=== PATIENT | male | born 1960 | race African-American/Black ===

== ENCOUNTER 2022-12-23 01:12 | Inpatient (IN) | payer SELFPAY ==
[2022-12-23] VITALS (24 sets, daily range): BP systolic 102–184; BP diastolic 67–111; PULSE 56–86; RESP 14–22; TEMP 36.7–36.8; O2SAT 94–100; BMI 28.3
--- NOTE | 2022-12-23 | ECHO_ITS ---
Patient Info Name: David Harp Age: 62 years : 1960 Gender: Male Ht: 75 in Wt: 230 lbs BSA: 2.37 m2 HR: 78 bpm BP: 165 / 85 mmHg Heart Rhythm: Sinus Rhythm Technical Quality: Good Exam Date: 12/23/2022 8:07 AM Exam Location: [facility] Pulmonary Exam Room: ICU1 Patient Status: Inpatient Admit Date: 12/23/2022 Staff Ordering Physician: Shen Sheikh MD Dip Stand Loader: Teetee Walter RDCS Attending Provider: Shen Sheikh MD Referring Physician: Aguilar CAGLE; Exam Type: CA echo doppler color flow Study Info Indications - chest pain s/ cath lvh stemi Complete two-dimensional, color flow and Doppler transthoracic echocardiogram is performed. Summary 1. Complete two-dimensional, color flow and Doppler transthoracic echocardiogram is performed. 2. Concentric left ventricular hypertrophy with normal systolic function and grade 1 diastolic noncompliance. 3. Mildly sclerotic aortic valve without stenosis. 4. Trivial MR. Left Ventricle Left ventricular chamber dimension is normal. Left ventricular systolic function is normal, estimated at 60-65%. There is moderate concentric increased left ventricular wall thickness. The left ventricular diastolic function is grade I diastolic dysfunction. Right Ventricle Right ventricular chamber dimension is normal. Left Atria Left atrial chamber dimension is mildly enlarged. Right Atria Right atrial chamber dimension is normal. Aortic Valve The aortic valve is trileaflet. There is mild aortic valve sclerosis. Pulmonic Valve The pulmonic valve is not well visualized. Mitral Valve The mitral valve has normal leaflets. There is trace mitral valve regurgitation. Tricuspid Valve The tricuspid valve leaflets are normal. Pericardium/Pleural The pericardium appears normal. Aorta The aortic root size at the sinus of Valsalva is normal. Left Ventricular Outflow Tract Name Value Normal LVOT 2D LVOT Diameter 2.1 cm LVOT Doppler LVOT Peak Gradient 5 mmHg LVOT Mean Gradient 2 mmHg LVOT VTI 20 cm LVOT VTI/AV VTI Ratio 1.0 LVOT Stroke Volume 68 ml LVOT CO 14.5 l/min LVOT CI 6.1 l/min/m2 Pulmonic Valve Name Value Normal PV Doppler PV Peak Gradient 3 mmHg Mitral Valve Name Value Normal MV Doppler MV Decel [place] 335 cm/s2 MV PHT 49
--- NOTE | ~2022-12-23 | CT_ITS ---
EXAMINATION: CTA chest abdomen pelvis DATE: 12/23/2022 10:00 INDICATION: Chest pain radiating to the back TECHNIQUE: Computed tomographic angiography (CTA) of the chest, abdomen, and pelvis was performed wit hout and with 100 mL Omnipque-350 intravenous contrast. Maximum intensity projection 3D-reconstructio ns of the aorta and other arteries were constructed by the technologist on a separate workstation. Th e dose-length product (DLP) was 1963.93 mGy-cm. Automated exposure control and iterative reconstructi on technique were employed. COMPARISON: None. FINDINGS: CHEST CTA: There is an acute dissection of the aorta beginning at the proximal descending aorta and continuing i nto the abdominal aorta just below the level of the renal arteries. There are patchy airspace opaciti es of the lower lobes. No pleural effusion or pneumothorax. No pathologically enlarged thoracic lymph nodes are identified. The heart size is normal. Surgical changes are noted in the lower cervical spi ne. ABDOMEN AND PELVIS CTA: The aortic dissection continues from the distal descending aorta into the abdomen to just below the l evel of the renal arteries. The celiac axis, superior mesenteric artery and left renal artery arise f rom the true lumen. The right renal artery arises from the false lumen. The liver, spleen, pancreas, and adrenal glands are normal. The gallbladder is surgically absent. Cysts of the kidneys measure up to 10 mm on the right. No pathologically enlarged abdominal or pelvic lymph nodes are identified. No free intraperitoneal gas or evidence of bowel obstruction. There is an umbilical hernia containing fa t. There is moderate lumbar spondylosis. The urinary bladder is opacified with contrast, likely relat ed to earlier cardiac catheterization. IMPRESSION: 1. Aortic dissection beginning at the proximal descending aorta and continuing to the abdominal aorta just below the level between arteries. The celiac axis, superior mesenteric artery, and left renal a rtery arise from the true lumen. The right renal artery arises from the false lumen. These findings w ere discussed with Dr. Polly Cuevas MD at 1027 hours on 12/23/2022. 2. Patchy dependent airspace opacities of the lungs, consistent with atelectasis versus pneumonia. Reviewed, dictated and finalized at location A. IMPRESSION: 1. Aortic dissection beginning at the proximal descending aorta and continuing to the abdominal aorta just below the level between arteries. The celiac axis, superior mesenteric artery, and left renal artery arise from the true lumen. Th e right renal artery arises from the false lumen. These findings were discussed with Dr. Polly Cuevas MD at 1027 hours on 12/23/2022. 2. Patchy dependent airspace opacities of the lungs, consistent with atelectasi s versus pneumonia.
--- NOTE | ~2022-12-23 | XR_ITS ---
EXAMINATION: XR chest 1V portable INDICATION: Chest pain TECHNIQUE: Portable AP chest at 0151 hours COMPARISON: None available FINDINGS: There are patchy interstitial and airspace opacities throughout the lungs. No pleural effus ion or pneumothorax. The cardiomediastinal silhouette is normal. Partially imaged changes of fusion p rocedure are noted at the cervicothoracic junction. IMPRESSION: 1. Mild diffuse lung disease which could reflect pulmonary edema versus pneumonia versus atelectasis. Reviewed, dictated and finalized at location A. IMPRESSION: 1. Mild diffuse lung disease which could reflect pulmonary edema versus pneumon ia versus atelectasis.
--- NOTE | 2022-12-23 01:19 | ECG_ITS ---
Measurements Intervals [place] Rate: 55 P: 68 IN: 136 QRS: 2 QRSD: 136 T: -66 QT: 454 QTc: 435 Interpretive Statements SINUS BRADYCARDIA WITH SINUS ARRHYTHMIA POSSIBLE LEFT ATRIAL ENLARGEMENT RSR' IN V1 OR V2, CONSIDER RIGHT VENTRICULAR HYPERTROPHY OR RIGHT VCD DELAYED PRECORDIAL R/S TRANSITION LEFT VENTRICULAR HYPERTROPHY AND ST-T CHANGE LATERAL INFARCT, AGE INDETERMINATE HIGH LATERAL INFARCT, AGE INDETERMINATE ST-T WAVE ABNORMALITY IN INFERIOR LEADS- CONSIDER ISCHEMIA ABNORMAL ECG NO PREVIOUS ECG AVAILABLE FOR COMPARISON Electronically Signed On 12-23-2022 8:22:25 CDT by Adithya Van D.O.
--- NOTE | 2022-12-23 01:26 | ECG_ITS ---
Measurements Intervals [place] Rate: 57 P: 148 NC: 136 QRS: -15 QRSD: 138 T: -32 QT: 454 QTc: 443 Interpretive Statements ECTOPIC ATRIAL BRADYCARDIA LEFT ATRIAL ENLARGEMENT RSR' IN V1 OR V2, CONSIDER RIGHT VENTRICULAR HYPERTROPHY OR RIGHT VCD LEFT VENTRICULAR HYPERTROPHY AND ST-T CHANGE LATERAL INFARCT, AGE INDETERMINATE HIGH LATERAL INFARCT, AGE INDETERMINATE ST-T WAVE ABNORMALITY IN INFERIOR LEADS- CONSIDER ISCHEMIA ABNORMAL ECG COMPARED TO ECG 12/23/2022 01:21:12 NO SIGNIFICANT CHANGES Electronically Signed On 12-23-2022 8:23:30 CDT by Adithya Van D.O.
[2022-12-23] MEDS: ASPIRIN 81 MG CHEWABLE TABLET 324 MG PO (01:31)
--- NOTE | 2022-12-23 01:32 | ED_ITS ---
HPI - General Adult General Chief complaint: Chest Pain Stated complaint: epigastric pain History of Present Illness HPI narrative: Patient 62-year-old gentleman who presents the emergency department with chief complaint of chest pain. Patient reports that around midnight he started having discomfort in his chest reports that he got diaphoretic and short of breath. Patient reports that the pain is not radiating but does report that he feels weak in his lower extremities. The patient states that the pressure is a heaviness and fullness sensation in his chest reports that its not improved by anything. Review of Systems Review of Systems: A 10 system review of systems was completed on the patient and is negative except for what is stated in the HPI. Nursing and ancillary documentation was reviewed. Exam Narrative: GENERAL: Ill-appearing, diaphoretic, appears in acute pain. HEAD: Normocephalic, atraumatic. EYES: PERRLA and EOMI. ENT: Nares clear, no rhinorrhea or epistaxis. Mucous membranes moist. NECK: Supple. CHEST: Clear to auscultation. No respiratory distress. HEART: Regular rate and rhythm. No murmur heard. Normal peripheral pulses. ABDOMEN: Soft, nontender, nondistended, normal active bowel sounds. EXTREMITIES: Normal range of motion. No edema. SKIN: Warm, dry, no rash. NEURO: No focal deficits. Alert and oriented x3. PSYCH: Normal mood and affect. Course Vital Signs Vital signs: Vital Signs Pulse Rate 65 12/23/22 01:19 Respiratory Rate 22 H 12/23/22 01:19 Blood Pressure 166/108 H 12/23/22 01:19 Pulse Oximetry 94 12/23/22 01:19 Oxygen Delivery Room Air 12/23/22 01:19 Pulse Rate 56 L 12/23/22 01:28 Respiratory Rate 22 H 12/23/22 01:19 Blood Pressure 166/108 H 12/23/22 01:19 Pulse Oximetry 94 12/23/22 01:19 Oxygen Delivery Room Air 12/23/22 01:19 Medical Decision Making [facility] Narrative Medical decision making narrative: Differential diagnosis includes ST elevation NH, non-STEMI, ACS, Initial EKG showed lateral ST elevations with reciprocal ST depressions Due to the findings of the EKG and the patient's clinical presentation the patient was activated as an acute ST elevation NH the case was discussed with Dr. Sheikh of interventional cardiology the patient was started on heparin given aspirin given Brilinta was given Lopressor morphine and a nitroglycerin drip was ordered as well. Vital Signs Vital Signs: Vital Signs Pulse Rate 65 12/23/22 01:19 Respiratory Rate 22 H 12/23/22 01:19 Blood Pressure 166/108 H 12/23/22 01:19 Pulse Oximetry 94 12/23/22 01:19 Oxygen Delivery Room Air 12/23/22 01:19 Pulse Rate 56 L 12/23/22 01:28 Respiratory Rate 22 H 12/23/22 01:19 Blood Pressure 166/108 H 12/23/22 01:19 Pulse Oximetry 94 12/23/22 01:19 Oxygen Delivery Room Air 12/23/22 01:19 Critical Care Time Critical Care Time Critical Care Time: Yes Total Critical Care Time: 30 Discharge Plan Discharge Clinical Impression: ST elevation NH (STEMI) Patient Disposition: Still a Patient Condition: Stable Time of Disposition: 01:37
[2022-12-23] MEDS: MORPHINE SULFATE (*CRX) 4 MG/ML INJ IV PUSH ×2 (01:35→02:02)
[2022-12-23] MEDS: TICAGRELOR 90 MG TABLET 180 MG PO (01:39)
[2022-12-23] MEDS: HEPARIN SODIUM 5,000 UNITS/ML VIAL 4000 UNITS IV PUSH (01:39)
[2022-12-23 01:43] LABS: Basophils Absolute Auto 0.1 K/mm3 (0.0-0.1); Basophils Percent Auto 0.5 % (0.2-1.2); Eosinophils Absolute Auto 0.2 K/mm3 (0-0.3); Eosinophils Percent Auto 1.6 % (0-4.4); Hematocrit 42.3 % (42.0-52.0); Immature Granulocyte Absolute 0.06 K/mm3 (0.00-0.031); Immature Granulocyte Percent A 0.5 % (0-0.5); Lymphocytes Absolute Auto 2.08 K/mm3 (0.9-3.2); Lymphocytes Percent Auto 16.2 % (18.3-44.2); Mean Corpuscular HGB Conc 33.1 g/dl (32-36); Mean Corpuscular Hemoglobin 26.5 pg (26-34); Mean Corpuscular Volume 80.1 fl (80-100); Mean Platelet Volume 10.8 fl (7.4-10.4); Monocytes Absolute Auto 0.8 K/mm3 (0.1-0.6); Monocytes Percent Auto 6.2 % (2.6-8.5); Neutrophils Absolute Auto 9.6 K/mm3 (1.3-6.7); Platelet Count Result 156 k/mm3 (150-375); Red Blood Count 5.28 M/mm3 (4.6-6.20); Red Cell Distribution Width 16.1 % (11.5-14.5); White Blood Count 12.8 K/mm3 (4.5-10.0)
[2022-12-23 01:53] LABS: Alanine Aminotransferase 25 U/L (6-50); Albumin Level 4.4 g/dL (3.5-5.1); Alkaline Phosphatase 119 U/L (38-126); Anion Gap 6 mmol/L (8-16); Aspartate Amino Transferase 30 U/L (17-59); Bilirubin,Total 0.6 mg/dL (0.2-1.3); Blood Urea Nitrogen 17 mg/dL (9-20); Carbon Dioxide 27 mmol/L (22-30); Chloride 108 mmol/L (98-107); Estimated CRCL calculation 72 ml/min; Estimated Glomerular Filt Rate > 60; Glucose 117 mg/dL (65-110); Lipase 40 U/L (23-300); Potassium 3.6 mmol/L (3.4-5.0); Sodium 141 mmol/L (137-145)
[2022-12-23 01:58] LABS: Prothrombin Time 13.2 Seconds (11.1-14.7)
[2022-12-23 02:03] LABS: NT Pro B Type Natriuretic Pept 113 pg/mL (19.9-100)
[2022-12-23 02:45] LABS: Troponin I < 0.012 ng/mL (0.000-0.034)
--- NOTE | 2022-12-23 03:02 | PM.IMHP ---
H&P: HPI History of Present Illness Date/Time: 12/23/22 03:02 Chief Complaint: chest pain Narrative: this is a 62-year-old man who is unknown to me prior to this emergency. He came to the emergency room in the middle of the night because of chest pain that started a short time ago at home. STEMI was declared by the ED staff and the STEMI team has been activated the patient is now being prepared for emergency angiography in the cardiac catheterization lab. Apparently he was given some morphine in the emergency room and as a result he is somewhat sedated and not providing any direct history at this time. Was told that he had no prior history of coronary artery disease. He was not apparently taking any home medications prior to the procedure. There are no previous records here at [facility]. Review of Systems Review of Systems: ROS unobtainable: Yes unobtainable due to mental status Meds Home Medications and Allergies Allergies Allergy/AdvReac Type Severity Reaction Status Date / Time No Known Allergies Allergy Verified 12/23/22 01:52 Vital Signs Vital Signs - 24 hr 12/23/22 01:19 12/23/22 01:28 12/23/22 01:41 Pulse Rate 65 56 L Respiratory Rate 22 H Blood Pressure 166/108 H Pulse Oximetry 94 96 Oxygen Delivery Room Air Nasal Cannula Oxygen Flow Rate 2 12/23/22 01:35 12/23/22 01:54 Pulse Rate 59 L 66 Respiratory Rate 16 16 Blood Pressure 172/95 H 154/97 H Pulse Oximetry 100 95 Oxygen Delivery Oxygen Flow Rate Exam Const: Other: Tall well-developed well-nourished black male who is moaning but otherwise not providing any direct history at this time HENMT: Mouth: Yes moist mucous membranes Eyes: Sclera: sclerae normal Neck: Neck: supple and no JVD Other: carotid pulses are unremarkable bilaterally Resp: Effort & Inspection: normal respiratory effort Auscultation: clear to auscultation bilaterally Cardio: Rate: regular rate Rhythm: regular rhythm Other: the PMI is nondisplaced there is no murmur 4th heart sound is audible GI: GI Palp: Yes Soft to palpation Auscultation: normal bowel sounds Skin: General skin exam: normal color Neuro: Other: patient is arousable but apparently sedated from IV morphine Extrem: General: normal to inspection Other: normal pulses, no edema H&P: Results Labs Labs: Short CBC 12/23/22 Range/Units 01:38 WBC 12.8 H (4.5-10.0) K/mm3 Hgb 14.0 (14.0-18.0) g/dL Hct 42.3 (42.0-52.0) % Plt Count 156 (150-375) k/mm3 BMP 12/23/22 01:38 Sodium 141 Potassium 3.6 Chloride 108 H Carbon Dioxide 27 BUN 17 Creatinine 1.20 Glucose 117 H Calcium 9.0 Cardiac Enzymes 12/23/22 Range/Units 01:38 Troponin I < 0.012 (0.000-0.034) ng/mL Liver Function 12/23/22 Range/Units 01:38 Total Bilirubin 0.6 (0.2-1.3) mg/dL AST 30 (17-59) U/L ALT 25 (6-50) U/L Alkaline Phosphatase 119 (38-126) U/L Albumin 4.4 (3.5-5.1) g/dL Assessment and Plan Assessment and plan (1) ST elevation [place] (STEMI): Code(s): I21.3 - ST elevation (STEMI) myocardial infarction of unspecified site Status: Acute Plan 62-year-old man who presents to the hospital with acute chest pain STEMI was activated by the ED staff. He is be prepared for emergency angiography and revascularization if indicated by the findings. Shen Sheikh MD [facility]
--- NOTE | 2022-12-23 03:05 | WPDCARDPROC ---
Cardiac Cath Procedure Note Date of procedure:: 12/23/22 Performing physician:: Shen Sheikh MD Indication:: chest pain/ STEMI activate Brief clinical history:: this is a 62-year-old black male unknown to me prior to this emergency. The patient presented to the emergency room a short time ago with chest pain it is middle of the night that awakened him from sleep. His ECG was interpreted as consistent with acute anterior OH. there is evidence of sinus rhythm with impressive voltage evidence of LVH but there is no obvious acute current of injury. patient was given aspirin Brilinta and heparin in the emergency department. Procedure Procedure performed:: Emergency coronary angiography left ventriculography aortic root injection Sedation/Medication given:: no additional sedation given in the cardiac catheterization case start time 2:26 a.m. case end time 2:49 a.m. Access site:: right femoral artery Estimated blood loss:: 25 cc Procedure note:: Patient was brought to the cardiac catheterization lab where the right femoral was prepared and draped in the normal fashion. Anesthesia was provided with 1% lidocaine infiltrated locally. Using the modified Seldinger technique the femoral artery was punctured and a 6 Bruneian vascular sheath was placed. After this I used a 5 [place] JR4 catheter to engage right coronary artery. A successful in finding the right coronary ostium with this catheter. I then used a 6 [place]une[place] CLS 3.5 catheter to engage the left coronary artery for angiography in multiple projections. Following this a WRP catheter was used to look for the right coronary ostium. Lastly I used a 5 [place] angled pigtail catheter to document left-sided hemodynamics and to inject left ventriculogram in the PEREZ projection. The same catheter was used to inject a aortic root injection in the 45 degree PAT projection. This any reviewed and the case was terminated. The sheath was sutured into position and the patient was taken to the ICU for post cath recovery and further treatment and evaluation. Findings:: Hemodynamics: Central aortic pressure is 194 over 100 left ventricle 194 over 10 end-diastolic 30. No gradient across the aortic valve. Left ventricle: Left ventricle is normal in dimension there appears to be concentric LVH with vigorous contractility segments the ejection fraction I would visually estimated to be 65-70%. There were no regional wall motion abnormalities. The left main coronary artery is widely patent the left anterior descending is a moderate caliber artery extending down to around the apex. The LAD has a large diagonal branch taking off proximally which continues down nearly to the apex as well. The LAD in the major diagonal as well as the septal branches are free of disease. Circumflex is large in caliber and dominant to the posterior circulation. The circumflex trunk, the marginal branches and the posterior branches are angiographically normal. The right coronary artery is very small in non dominant and seen on the aortic root injection. As it is very small and non dominant further attempts to engage it selectively for angiography were not performed aortic root injection is unremarkable. There is no enlargement or evidence of dissection flap. Conclusion:: 1. Left coronary dominant circulation with no angiographic evidence of coronary artery disease 2. left ventricular hypertrophy with vigorous systolic function 3. severe systemic hypertension Shen Santiago MD [facility]
--- NOTE | 2022-12-23 03:25 | ECG_ITS ---
Measurements Intervals [place] Rate: 77 P: 70 MO: 148 QRS: -3 QRSD: 138 T: -81 QT: 425 QTc: 482 Interpretive Statements SINUS RHYTHM WITH MARKED SINUS ARRHYTHMIA WITH ATRIAL COUPLET POSSIBLE LEFT ATRIAL ENLARGEMENT RSR' IN V1 OR V2, CONSIDER RIGHT VENTRICULAR HYPERTROPHY OR RIGHT VCD LEFT VENTRICULAR HYPERTROPHY AND ST-T CHANGE LATERAL INFARCT, AGE INDETERMINATE HIGH LATERAL INFARCT, AGE INDETERMINATE BORDERLINE ST-T WAVE ABNORMALITY- INFERIOR LEADS ABNORMAL ECG COMPARED TO ECG 12/23/2022 01:27:05 [address]INUS [address]M NOW PRESENT [address]-T WAVE ABNORMALITY IMPROVED Electronically Signed On 12-23-2022 8:28:32 CDT by Adithya Van D.O.
[2022-12-23] MEDS: LABETALOL HCL INJ 100 MG/20 ML VIAL 20 MG IV PUSH ×2 (03:33→10:12)
--- NOTE | 2022-12-23 04:59 | ADMGEN ---
This patient, David Harp, was admitted to Intensive Care Unit-1 at 320. Patient/family oriented to hospital policies and general routines including ID bracelet, bed and alarms, visiting hours, pain management, procedures, bathroom and other care routines, personal items, smoking policy, room service/diet, and visiting hours. Information on how to activate the Rapid Response Team has been discussed. Patient/Family are encouraged to report perceived risks to care and to ask questions if they do not understand what they are told or what they should do.
[2022-12-23 07:40] LABS: Alanine Aminotransferase 37 U/L (6-50); Alkaline Phosphatase 124 U/L (38-126); Anion Gap 5 mmol/L (8-16); Aspartate Amino Transferase 48 U/L (17-59); Bilirubin,Total 0.9 mg/dL (0.2-1.3); Blood Urea Nitrogen 14 mg/dL (9-20); Calcium 8.8 mg/dL (8.4-10.2); Carbon Dioxide 25 mmol/L (22-30); Chloride 109 mmol/L (98-107); Estimated CRCL calculation 94 ml/min; Estimated Glomerular Filt Rate > 60; Glucose 121 mg/dL (65-110); Potassium 3.9 mmol/L (3.4-5.0); Sodium 139 mmol/L (137-145)
[2022-12-23 08:02] LABS: INR 1.2; Partial Thromboplastin Time 28.1 SECONDS (22.3-36.8); Prothrombin Time 14.6 Seconds (11.1-14.7)
[2022-12-23 08:10] LABS: Basophils Percent Auto 0.4 % (0.2-1.2); Eosinophils Percent Auto 0.3 % (0-4.4); Hematocrit 39.5 % (42.0-52.0); Hemoglobin 13.3 g/dL (14.0-18.0); Immature Granulocyte Absolute 0.03 K/mm3 (0.00-0.031); Immature Granulocyte Percent A 0.3 % (0-0.5); Lymphocytes Absolute Auto 1.09 K/mm3 (0.9-3.2); Lymphocytes Percent Auto 10.1 % (18.3-44.2); Mean Corpuscular HGB Conc 33.7 g/dl (32-36); Mean Corpuscular Hemoglobin 26.4 pg (26-34); Mean Corpuscular Volume 78.5 fl (80-100); Mean Platelet Volume 11.1 fl (7.4-10.4); Monocytes Absolute Auto 0.8 K/mm3 (0.1-0.6); Monocytes Percent Auto 7.7 % (2.6-8.5); Neutrophils Absolute Auto 8.7 K/mm3 (1.3-6.7); Neutrophils Percent Auto 81.2 % (45.5-73.1); Platelet Count Result 157 k/mm3 (150-375); Red Blood Count 5.03 M/mm3 (4.6-6.20); Red Cell Distribution Width 15.5 % (11.5-14.5); White Blood Count 10.8 K/mm3 (4.5-10.0)
[2022-12-23] MEDS: LOSARTAN POTASSIUM 100 MG TABLET PO (08:48)
[2022-12-23] MEDS: METOPROLOL SUCCINATE EXT REL 50 MG TABCR PO (08:48)
[2022-12-23] MEDS: CHLORTHALIDONE 25 MG TABLET PO (08:51)
--- NOTE | 2022-12-23 09:15 | WPDCNINT ---
Assessment and Plan Assessment and plan (1) ST elevation [place] (STEMI): Code(s): I21.3 - ST elevation (STEMI) myocardial infarction of unspecified site Status: Acute Assessment and Plan: Patient presented with chest pain, diaphoresis, shortness of breath, radiation to the back. Patient was taken to the cardiac slabber and underwent an angiogram which showed no evidence of coronary artery disease, there is no enlargement or evidence of dissection flap, aortic root injection is unremarkable, EF of 65-70% with concentric LVH -patient has been started on statin, chlorthalidone, lisinopril, metoprolol -cardiology following the patient (2) Chest pain: Code(s): R07.9 - Chest pain, unspecified Status: Acute Assessment and Plan: -patient continues to have chest pain this morning that is radiating to the back, will obtain CT scan of the chest to rule out dissection -given that patient has severe systemic hypertension -will also give him normal saline at 100 mL/hour x1 bag (1000 mL) post CT scan for renal protection since he also had an angiogram earlier today (3) Essential hypertension: Code(s): I10 - Essential (primary) hypertension Status: Acute Assessment and Plan: Patient on medications as above per Cardiology -hydralazine p.r.n. has been ordered for systolics greater than 160 mmHg Plan DVT prophylaxis: Patient received Brilinta and heparin anemia this morning Stress ulcer prophylaxis: Not indicated Nutrition: Heart healthy diet Code Status: Full code Critical Care Time Spent: 48 minutes Due to a high probability of clinically significant, life threatening deterioration, the patient required my highest level of preparedness to intervene emergently and I personally spent this critical care time directly and personally managing the patient. This critical care time included obtaining a history; examining the patient; pulse oximetry; ordering and review of studies; arranging urgent treatment with development of a management plan; evaluation of patient's response to treatment; frequent reassessment; and discussions with other providers. It was exclusive of separately billable procedures and treating other patients and teaching time. Please see Assessment and Plan section and the rest of the note for further information on patient assessment and treatment This dictation may have been done utilizing a voice recognition system. Attempts have been made to correct errors. However, there may be uncorrected grammatical, spelling, and recognitions errors present. [employer] Consult Note Consult date: 12/23/22 Reason for consult: Chest pain, shortness a breath, diaphoresis, STEMI decline in the ER HPI: David Harp is a 62 year old male past medical history of essential hypertension presented the ED on 12/23/2022 in the early hours complains of chest pain that woke him up in a night. Patient also complained of shortness of, pressure-like chest pain with sensation of fullness and heaviness in the chest , into the back along with weakness in lower extremities. ECG in the ER was read as acute anterior [place], according the dog bather the EKG showed sinus rhythm with impressive voltage evidence of LVH with there is no obvious acute current of injury. Patient was taken to the slabber with no evidence of coronary artery disease, LVH with vigorous systolic function 65-70%, severe systemic hypertension. Patient was sent to the ICU for further management. Patient was started on statin, chlorthalidone, losartan, metoprolol. Patient seen examined this morning in the ICU, continues to complain of chest pain that is radiating to the back, denies any shortness of breath or diaphoresis. Also complains of leg pain. Patient is hypertensive, good O2 sats on room air, urine output has been adequate, afebrile. Denies any nausea, vomiting and abdominal pain at this time Review of Systems Review of Systems: Al
[2022-12-23] MEDS: MORPHINE SULFATE (*CRX) 2 MG/ML INJ IV PUSH (10:20)
[2022-12-23] MEDS: SODIUM CHLORIDE 0.9% IV 1,000 ML 100 ML IV CONT (10:23)
[2022-12-23] MEDS: ESMOLOL HCL 2,500 MG/250 ML 2,500 MG/250 ML BAG 32.58 MG IV CONT (10:40)
[2022-12-23] MEDS: hydrALAZINE HCL 20 MG/ML VIAL IV PUSH (11:18)
[2022-12-23] MEDS: HYDROmorphone HCL INJ (*CRX) 1 MG/ML SYR IV PUSH (11:27)
[2022-12-23 11:34] LABS: Lactic Acid Reflex 2.1 mmol/L (0.7-2.0)
[2022-12-23] MEDS: SODIUM NITROPRUSSIDE IV SOLN 50 MG in DEXTROSE 5% IN WATER 250 ML 9.77 MG IV CONT (11:48)
--- NOTE | 2022-12-23 12:14 | PC.NURSE ---
Transferred patient to [place], via Air evac. Patient on room air, A&O x 4. Report given to Chantale. last set of vitals HR 81 02 96 on room air, BP 102/67 RR 16. Belongings sent with patient full set of dentures and cell phone. 12:12
[2022-12-23 14:21] LABS: Reflex Lactic Acid Yes or No Add Lactic
[2022-12-25 07:15] LABS: Activated Clotting Time 113 SEC (74-137)
--- NOTE | 2022-12-27 07:24 | P.TS_ITS ---
Transfer Discharge Sum: Prov Provider Date of admission: 12/23/22 01:31 Primary care physician: Kelechi Campos MD Admitting clinician: Shen Sheikh MD Attending physician on admission: Shen Sheikh Attending physician on discharge: Shen Sheikh Discharging clinician: Shen Sheikh Anticipated date of transfer: 12/24/22 Receiving physician/facility: [facility] DS: Admitting Diagnosis Discharge Date 12/23/[address]-elevation MO DS: Discharge Diagnosis Discharge Diagnosis Plan Type 2 aortic dissection Transfer Discharge Sum: Med Medications Active and Home Medications: Home Medications ibuprofen 200 mg tablet 3,200 mg PO DAILY 12/23/22 [History Confirmed 12/23/22] Transfer Discharge Sum: Hosp Hospital Course Hospital course: David Harp is a 62 year old male who presented to the hospital in the middle of the night with chest pain. Evaluation in the ER lead to the impression of anterior ST-elevation MO based on ECG appearance. STEMI team was activated and the patient was brought for emergency cardiac catheterization. The patient underwent the procedure uneventfully and was found to have left coronary dominant circulation with no evidence of coronary artery disease. Left ventricular systolic function was also normal. Following recovery from the angiogram in the ICU the patient's chest pain was reported to be worsening in the thoracic area in the interscapular region of the back. For this reason a CT of the thoracic aorta was done which documented evidence of a type 2 aortic dissection. The patient was otherwise hemodynamically stable. He was transferred by ambulance to [facility] for ongoing care and management of this as acute aortic dissection is requiring higher level of vascular care that is available at [facility]. Time Spent with Patient Time attestation: Total time spent providing and/or coordinating transfer services: Total time spent: Greater than 30 minutes Exam Narrative: Well-developed well-nourished black male in moderate distress because of chest and back pain Const: General: acute distress HENMT: Head: atraumatic Eyes: Sclera: sclerae normal Pupils: Equal, round and reactive pupils present Neck: Neck: supple and no JVD Thyroid: thyroid normal Chest: Chest palpation & inspection: normal inspection of the chest Resp: Auscultation: clear to auscultation bilaterally Cardio: Palpation: normal PMI Rate: regular rate Rhythm: regular rhythm Heart sounds: S1 normal heart sound present and S2 normal heart sound present GI: Inspection: normal to inspection GI Palp: Yes Soft to palpation Skin: General skin exam: normal color Neuro: General: oriented to person and oriented to place Extrem: Other: Distal perfuse normal/intact no edema
== END 2022-12-23 12:12 | disposition short-term general hospital (02) | DRG 192 ==
LOC: ANHED 01:40 → ANHICU 01:44
PROVIDERS: Internal Medicine; Admitting Provider Specialist; Emergency Provider Emergency Medicine; PCP Family Medicine; Visit Provider Specialist
PROC: 4A023N7 Measurement of Cardiac Sampling and Pressure, Left Heart, Percutaneous Approach (ICD-10-PCS; CPT 93452; principal; 2022-12-23 02:00)
DX: I71.03 Dissection of thoracoabdominal aorta (principal); F17.210 Nicotine dependence, cigarettes, uncomplicated; I10 Essential (primary) hypertension
CPT/HCPCS: 36415; 71045; 71275; 74174; 80053; 83605; 83690; 83880; 84484; 85025; 85610; 85730; 86850; 86900; 86901; 93005; 93306; 93458; 96374; 96375; 99285; A9270; C1887; C1894; J0360; J1170; J1644; J2270; J7040; J7050; J7060; Q9967

== ENCOUNTER 2023-03-30 08:29 | Outpatient (CLI) | payer BC, SELFPAY ==
[2023-03-30 09:55] LABS: Anion Gap 10 mmol/L (8-16); Blood Urea Nitrogen 13 mg/dL (9-20); Carbon Dioxide 27 mmol/L (22-30); Chloride 104 mmol/L (98-107); Estimated Glomerular Filt Rate > 60; Glucose 113 mg/dL (65-110); Potassium 3.2 mmol/L (3.4-5.0); Sodium 141 mmol/L (137-145)
== END 2023-03-30 08:30 | disposition home or self-care (01) ==
PROVIDERS: PCP Family Medicine; Visit Provider Internal Medicine Cardiovascular Disease
DX: Z79.899 Other long term (current) drug therapy (principal)
CPT/HCPCS: 36415; 80048

== ENCOUNTER 2023-04-04 07:53 | Outpatient (CLI) | payer BC, SELFPAY ==
[2023-04-04 08:59] LABS: Anion Gap 8 mmol/L (8-16); Blood Urea Nitrogen 14 mg/dL (9-20); Calcium 8.8 mg/dL (8.4-10.2); Carbon Dioxide 27 mmol/L (22-30); Chloride 106 mmol/L (98-107); Estimated Glomerular Filt Rate > 60; Glucose 103 mg/dL (65-110); Potassium 3.6 mmol/L (3.4-5.0); Sodium 141 mmol/L (137-145)
== END 2023-04-04 07:54 | disposition home or self-care (01) ==
LOC: ANHLAB 07:55
PROVIDERS: PCP Family Medicine; Visit Provider Internal Medicine Cardiovascular Disease
DX: Z51.81 Encounter for therapeutic drug level monitoring (principal); Z79.899 Other long term (current) drug therapy
CPT/HCPCS: 36415; 80048

== ENCOUNTER 2023-04-11 20:05 | Emergency (ER) | payer BC, SELFPAY ==
[2023-04-11 20:15] VITALS: BP 149/60; PULSE 80; RESP 20; TEMP 36.4; O2SAT 97
[2023-04-11] MEDS: EPINEPHrine HCL INJ 1 MG/ML AMPUL 0.3 MG IM (20:47)
[2023-04-11] MEDS: methylPREDNISolone SOD SUCC 125 MG VIAL IV PUSH (20:48)
[2023-04-11] MEDS: diphenhydrAMINE HCl INJ 50 MG/ML VIAL IV PUSH (20:48)
[2023-04-11] MEDS: FAMOTIDINE 20 MG/2 ML VIAL IV PUSH (20:48)
[2023-04-11 21:28] VITALS: BP 147/70; PULSE 75; RESP 16; O2SAT 100
--- NOTE | 2023-04-11 21:29 | PC.NURSE ---
Pt updated on plan of care and monitoring. Pt resting comfortably on stretcher in no distress.
--- NOTE | 2023-04-11 21:40 | ED.ALLEREA ---
HPI - Allergic Reaction General Chief complaint: Allergic Reaction <July Kelly MD - Last Filed: 04/11/23 22:02> Stated complaint: allergic reaction <July Kelly MD - Last Filed: 04/11/23 22:02> Time Seen by Provider: 04/11/23 20:28 <July Kelly MD - Last Filed: 04/11/23 22:02> Source: patient <July Kelly MD - Last Filed: 04/11/23 22:02> Mode of arrival: ambulatory <July Kelly MD - Last Filed: 04/11/23 22:02> Limitations: no limitations <July Kelly MD - Last Filed: 04/11/23 22:02> History of Present Illness HPI narrative: 62 years old -[place]ian male came to the emergency room by private car because of swelling left side of lower lip noticed around 5:30 PM which is 3 hours prior to arrival . Associated with itching skin lesion at the right wrist anteriorly, left buttocks, left upper chest and lower back. Patient denies having similar symptoms in the past. Also denies any history of allergy. Currently he denies any difficulty swallowing or breathing, hoarseness of voice, nausea, vomiting or abdominal pain, patient still me that he have history of torn aorta require surgery and hypertension on 6 different kind of blood pressure medicine. Patient is not sure if he is on BERNARDA inhibitor or not. <July Kelly MD - Last Filed: 04/11/23 22:02> Related Data Home medications: Home Medications Medication Instructions Recorded Confirmed ibuprofen 200 mg tablet 3,200 mg PO DAILY 12/23/22 12/23/22 <July Kelly MD - Last Filed: 04/11/23 22:02> Allergies/adverse reactions: Allergies Allergy/AdvReac Type Severity Reaction Status Date / Time No Known Allergies Allergy Verified 04/11/23 20:06 <July Kelly MD - Last Filed: 04/11/23 22:02> Review of Systems Review of Systems: All systems reviewed & are unremarkable except as noted in HPI and below <July Kelly MD - Last Filed: 04/11/23 22:02> [facility] Social History Social History: Social History Smoking status: Current every day smoker Tobacco type: cigarettes Alcohol intake: former Substance use: current Substance use type: marijuana Lack of Transportation: No Lack of Food: Never True Current Housing: I Have Housing Concerned About Future Housing: No Difficulty Paying Gas/Electric Bills: No Difficulty Paying for Meds: No Currently Unemployed: No Education: High School Diploma/GED Difficulty w/ Childcare or Family Care: No Spiritual care concerns: No <July Kelly MD - Last Filed: 04/11/23 22:02> Exam Narrative: General appearance: Well-developed, well-nourished Skin: Normal color scattered itching skin lesion right wrist anteriorly, left buttock medially and left shoulder anteriorly, feels like skin induration patient is -[place] difficult to tell if it is hive or not. Head: Normocephalic, nontraumatic Eyes: Clear conjunctiva ENT: Oropharynx normal, ears normal, nose normal, erythematous left side of lower lip, normal size tongue and oral cavity Neck: Supple, nontender Chest and respiratory: Airway patent, no respiratory distress, no accessory muscle use Heart: Regular rate/rhythm Abdomen: Soft, nontender, no organomegaly, quiet bowel sounds Vascular: Normal peripheral pulses, normal capillary refill. Musculoskeletal: Normal range of motion, nontender back Neurologic: Alert and oriented ?3, [employer] is normal as tested, no gross motor deficit <July Kelly MD - Last Filed: 04/11/23 22:02> Course Course Emergency Course: 2305: Patient was signed out to me pending observation improvement in symp
[2023-04-11] MEDS: EPINEPHrine HCL INJ 1 MG/ML AMPUL 0.5 MG IM (21:55)
--- NOTE | 2023-04-11 23:00 | PC.NURSE ---
Pt reports his itching symptoms have resolved and he is ready to leave. Dr. Ku aware and will assess pt.
[2023-04-11 23:19] VITALS: BP 122/76; PULSE 68; RESP 18; O2SAT 98
== END 2023-04-11 23:21 | disposition home or self-care (01) ==
PROVIDERS: Emergency Provider Emergency Medicine; PCP Family Medicine
DX: T78.40XA Allergy, unspecified, initial encounter (principal); I10 Essential (primary) hypertension; F17.210 Nicotine dependence, cigarettes, uncomplicated
CPT/HCPCS: 96372; 96374; 96375; 99284; J0171; J1200; J2405; J2930

== ENCOUNTER 2023-05-08 08:27 | Outpatient (CLI) | payer BC, SELFPAY ==
[2023-05-08 09:18] LABS: Anion Gap 7 mmol/L (8-16); Blood Urea Nitrogen 16 mg/dL (9-20); Calcium 9.2 mg/dL (8.4-10.2); Carbon Dioxide 28 mmol/L (22-30); Chloride 105 mmol/L (98-107); Estimated Glomerular Filt Rate > 60; Glucose 107 mg/dL (65-110); Potassium 3.4 mmol/L (3.4-5.0); Sodium 140 mmol/L (137-145)
== END 2023-05-08 08:28 | disposition home or self-care (01) ==
LOC: ANHLAB 08:31
PROVIDERS: PCP Family Medicine; Visit Provider Internal Medicine Cardiovascular Disease
DX: Z79.899 Other long term (current) drug therapy (principal); I71.019 Dissection of thoracic aorta, unspecified
CPT/HCPCS: 36415; 80048

== ENCOUNTER 2023-05-15 08:32 | Outpatient (CLI) | payer BC, SELFPAY ==
[2023-05-15 09:16] LABS: Anion Gap 7 mmol/L (8-16); Blood Urea Nitrogen 17 mg/dL (9-20); Carbon Dioxide 25 mmol/L (22-30); Chloride 111 mmol/L (98-107); Estimated Glomerular Filt Rate > 60; Glucose 108 mg/dL (65-110); Potassium 3.6 mmol/L (3.4-5.0); Sodium 143 mmol/L (137-145)
== END 2023-05-15 08:33 | disposition home or self-care (01) ==
PROVIDERS: PCP Family Medicine; Visit Provider Internal Medicine Cardiovascular Disease
DX: I10 Essential (primary) hypertension (principal)
CPT/HCPCS: 36415; 80048

== ENCOUNTER 2023-06-06 08:43 | Outpatient (CLI) | payer BC, SELFPAY | END 2023-06-06 08:44 | disposition home or self-care (01) | LOC: ANHLAB 08:45 | PROVIDERS: PCP Family Medicine; Visit Provider Internal Medicine Cardiovascular Disease | DX: Z79.899 Other long term (current) drug therapy (principal) | CPT/HCPCS: 36415 ==

== ENCOUNTER 2023-06-07 09:00 | Outpatient (CLI) | payer BC, SELFPAY ==
[2023-06-07 10:38] LABS: Anion Gap 6 mmol/L (8-16); Blood Urea Nitrogen 12 mg/dL (9-20); Calcium 9.1 mg/dL (8.4-10.2); Carbon Dioxide 27 mmol/L (22-30); Chloride 109 mmol/L (98-107); Estimated Glomerular Filt Rate > 60; Glucose 87 mg/dL (65-110); Potassium 3.4 mmol/L (3.4-5.0); Sodium 142 mmol/L (137-145)
== END 2023-06-07 09:01 | disposition home or self-care (01) ==
LOC: ANHLAB 09:02
PROVIDERS: PCP Family Medicine; Visit Provider Internal Medicine Cardiovascular Disease
DX: Z79.899 Other long term (current) drug therapy (principal)
CPT/HCPCS: 36415; 80048

== ENCOUNTER 2023-06-19 08:49 | Outpatient (CLI) | payer BC, SELFPAY ==
[2023-06-19 09:27] LABS: Anion Gap 6 mmol/L (8-16); Blood Urea Nitrogen 13 mg/dL (9-20); Calcium 9.2 mg/dL (8.4-10.2); Carbon Dioxide 25 mmol/L (22-30); Chloride 111 mmol/L (98-107); Estimated Glomerular Filt Rate > 60; Glucose 101 mg/dL (65-110); Potassium 3.5 mmol/L (3.4-5.0); Sodium 142 mmol/L (137-145)
== END 2023-06-19 08:50 | disposition home or self-care (01) ==
LOC: ANHLAB 08:51
PROVIDERS: PCP Family Medicine; Visit Provider Internal Medicine Cardiovascular Disease
DX: Z79.899 Other long term (current) drug therapy (principal)
CPT/HCPCS: 36415; 80048

== ENCOUNTER 2023-07-17 09:18 | Outpatient (CLI) | payer BC, SELFPAY ==
[2023-07-17 10:48] LABS: Anion Gap 7 mmol/L (8-16); Blood Urea Nitrogen 8 mg/dL (9-20); Carbon Dioxide 26 mmol/L (22-30); Chloride 108 mmol/L (98-107); Estimated Glomerular Filt Rate > 60; Glucose 84 mg/dL (65-110); Potassium 3.2 mmol/L (3.4-5.0); Sodium 141 mmol/L (137-145)
== END 2023-07-17 09:19 | disposition home or self-care (01) ==
LOC: ANHLAB 09:19
PROVIDERS: PCP Family Medicine; Visit Provider Internal Medicine Cardiovascular Disease
DX: Z79.899 Other long term (current) drug therapy (principal)
CPT/HCPCS: 36415; 80048

== ENCOUNTER 2023-07-26 09:18 | Outpatient (CLI) | payer BC, SELFPAY ==
[2023-07-26 09:55] LABS: Anion Gap 8 mmol/L (8-16); Blood Urea Nitrogen 10 mg/dL (9-20); Calcium 9.1 mg/dL (8.4-10.2); Carbon Dioxide 21 mmol/L (22-30); Chloride 111 mmol/L (98-107); Estimated Glomerular Filt Rate > 60; Glucose 106 mg/dL (65-110); Potassium 3.1 mmol/L (3.4-5.0); Sodium 140 mmol/L (137-145)
== END 2023-07-26 09:19 | disposition home or self-care (01) ==
PROVIDERS: PCP Family Medicine; Visit Provider Internal Medicine Cardiovascular Disease
DX: Z79.899 Other long term (current) drug therapy (principal)
CPT/HCPCS: 36415; 80048

== ENCOUNTER 2023-08-02 09:20 | Outpatient (CLI) | payer BC, SELFPAY ==
[2023-08-02 10:28] LABS: Anion Gap 7 mmol/L (8-16); Blood Urea Nitrogen 8 mg/dL (9-20); Calcium 9.3 mg/dL (8.4-10.2); Carbon Dioxide 23 mmol/L (22-30); Chloride 111 mmol/L (98-107); Estimated Glomerular Filt Rate > 60; Glucose 96 mg/dL (65-110); Potassium 3.2 mmol/L (3.4-5.0); Sodium 141 mmol/L (137-145)
== END 2023-08-02 09:21 | disposition home or self-care (01) ==
LOC: ANHLAB 09:23
PROVIDERS: PCP Family Medicine; Visit Provider Internal Medicine Cardiovascular Disease
DX: Z79.899 Other long term (current) drug therapy (principal)
CPT/HCPCS: 36415; 80048

== ENCOUNTER 2023-08-15 09:13 | Outpatient (CLI) | payer BC, SELFPAY ==
[2023-08-15 10:19] LABS: Anion Gap 12 mmol/L (8-16); Blood Urea Nitrogen 13 mg/dL (9-20); Calcium 9.1 mg/dL (8.4-10.2); Carbon Dioxide 22 mmol/L (22-30); Chloride 108 mmol/L (98-107); Estimated Glomerular Filt Rate > 60; Glucose 96 mg/dL (65-110); Potassium 3.4 mmol/L (3.4-5.0); Sodium 142 mmol/L (137-145)
== END 2023-08-15 09:14 | disposition home or self-care (01) ==
LOC: ANHLAB 09:15
PROVIDERS: PCP Family Medicine; Visit Provider Internal Medicine Cardiovascular Disease
DX: I10 Essential (primary) hypertension (principal)
CPT/HCPCS: 36415; 80048

== ENCOUNTER 2023-08-21 09:18 | Outpatient (CLI) | payer BC, SELFPAY ==
[2023-08-21 09:52] LABS: Anion Gap 9 mmol/L (8-16); Blood Urea Nitrogen 10 mg/dL (9-20); Carbon Dioxide 22 mmol/L (22-30); Chloride 110 mmol/L (98-107); Estimated Glomerular Filt Rate > 60; Glucose 113 mg/dL (65-110); Potassium 3.5 mmol/L (3.4-5.0); Sodium 141 mmol/L (137-145)
== END 2023-08-21 09:19 | disposition home or self-care (01) ==
LOC: ANHLAB 09:20
PROVIDERS: PCP Family Medicine; Visit Provider Internal Medicine Cardiovascular Disease
DX: I10 Essential (primary) hypertension (principal)
CPT/HCPCS: 36415; 80048

== ENCOUNTER 2023-12-11 14:53 | Emergency (ER) | payer BC, SELFPAY ==
[2023-12-11 15:37] VITALS: BP 157/73; PULSE 69; RESP 18; TEMP 36.8; O2SAT 100
--- NOTE | 2023-12-11 15:51 | ED.SKABFB ---
HPI - Skin/Abscess/Foreign Bdy General Chief complaint: Skin/Abscess/Foreign Body Stated complaint: lt hand irritation Time Seen by Provider: 12/11/23 16:02 Source: patient and RN notes reviewed Mode of arrival: ambulatory Limitations: dementia History of Present Illness HPI narrative: 63-year-old male presents with concern for wound infection. He reports 3 weeks ago he had calluses removed surgically from the palmar aspect of his left hand. He reports he has been changing the dressings as directed but every time he pulls the dressing off tissue comes out of the wounds. He reports that has purulent drainage at this point. He denies fever, body aches, chills, sweats. MD complaint: other (Redness) Related Data Home Medications Medication Instructions Recorded Confirmed epinephrine 0.3 mg/0.3 mL 0.3 mg IM ONCE PRN Anaphylaxis 12/11/23 12/11/23 injection, auto-injector (EpiPen) Allergies Allergy/AdvReac Type Severity Reaction Status Date / Time No Known Allergies Allergy Verified 12/11/23 15:34 Review of Systems Review of Systems: CONSTITUTIONAL: Denies malaise, chills, sweats, or fever. EYES: Denies redness, or discharge. ENT: Denies rhinorrhea, congestion, swollen lips, swollen tongue CARDIOVASCULAR: Denies chest pain, palpitations, or edema. RESPIRATORY: Denies cough or dyspnea. GASTROINTESTINAL: Denies abdominal pain, nausea, vomiting SKIN: Reports to wounds on the palmar aspect of the left hand that are not healing well in her purulent drainage. Denies my vesicles, bullae, numbness, pain beyond proportion MUSCULOSKELETAL: Denies joint pain or myalgia. NEUROLOGIC: Denies headache. All systems reviewed & are unremarkable except as noted in HPI and below [facility] Social History Social History Smoking status: Current every day smoker Tobacco type: cigarettes Alcohol intake: former Substance use: current Substance use type: marijuana Lack of Transportation: No Lack of Food: Never True Current Housing: I Have Housing Concerned About Future Housing: No Difficulty Paying Gas/Electric Bills: No Difficulty Paying for Meds: No Currently Unemployed: No Education: High School Diploma/GED Difficulty w/ Childcare or Family Care: No Spiritual care concerns: No Comments At time of signature, agree with nursing past medical, surgical, social and family history. There is no relevant family history pertinent to the presenting complaint Exam Narrative: GENERAL: Well-appearing, well-nourished, and in no acute distress. HEAD: Normocephalic, atraumatic. EYES: PERRLA, conjunctivae clear ENT: Mucous membranes moist. NECK: Supple. No lymphadenopathy CHEST: Clear to auscultation. No respiratory distress. HEART: Regular rate and rhythm. SKIN: Warm, dry. Ulcerated wounds noted on the palmar aspect of the left hand, 2 cm x 3 cm on the left 2nd digit, 2 cm x 4 cm on the palm with purulence drainage in the wound bed. No vesicles, bullae, necrosis, ecchymosis, crepitus noted. NEURO: Alert and oriented x3. PSYCH: Normal mood and affect Course Course Emergency Course: Patient is aware of diagnosis, understands and agrees to treatment plan. Anticipatory guidance given. Patient agrees to follow-up as directed and is aware of reasons to seek care at the emergency department. Portions of this record may have been created with voice recognition software Level of Care: Express Care Visit Vital Signs Vital signs: Vital Signs Temperature 98.3 F 12/11/23 15:37 Pulse Rate 69 12/11/23 15:37 Respiratory Rate 18 12/11/23 15:37 Blood Pressure 157/73 H 12/11/23 15:37 Pulse Oximetry 100 12/11/23 15:37 Oxygen Delivery Room Air 12/11/23 15:37 Temperature 98.3 F 12/11/23 15:37 Pulse Rate 69 12/11/23 15:37 Respiratory Rate 18 12/11/23 15:37 Blood Pressure 157/73 H 12/11/23 15:37 Pulse Oximetry 100 12/11/23 15:37 O
== END 2023-12-11 16:20 | disposition home or self-care (01) ==
PROVIDERS: Emergency Provider Nurse Practitioner
DX: L08.9 Local infection of the skin and subcutaneous tissue, unspecified (principal); F17.210 Nicotine dependence, cigarettes, uncomplicated
CPT/HCPCS: 99213; G0463

== ENCOUNTER 2024-05-19 13:56 | Outpatient (CLI) | payer BC, SELFPAY ==
[2024-05-19 14:57] LABS: Anion Gap 10 mmol/L (4-12); Blood Urea Nitrogen 11 mg/dL (9-20); Calcium 9.1 mg/dL (8.4-10.2); Carbon Dioxide 22 mmol/L (22-30); Chloride 107 mmol/L (98-107); Estimated Glomerular Filt Rate > 60; Glucose 110 mg/dL (65-110); Potassium 3.7 mmol/L (3.4-5.0); Sodium 139 mmol/L (137-145)
== END 2024-05-19 13:57 | disposition home or self-care (01) ==
LOC: ANHLAB 13:59
PROVIDERS: Visit Provider Internal Medicine Cardiovascular Disease
DX: I71.012 Dissection of descending thoracic aorta (principal); I10 Essential (primary) hypertension
CPT/HCPCS: 36415; 80048

== ENCOUNTER 2025-05-07 12:11 | Emergency (ER) | payer BC, SELFPAY ==
--- NOTE | ~2025-05-07 | XR_ITS ---
EXAMINATION: XR toe 1st RT min 2V DATE: 05/07/2025 12:49 INDICATION: Right great toe injury post injury TECHNIQUE: Dorsal plantar, lateral and 2 oblique views of the right great toe were obtained. COMPARISON: None FINDINGS: Large region of ostial lysis involving the distal phalanx of the right great toe with prominent lucen cy extending between a large erosion at the medial aspect of the tuft and a smaller cortical erosion at the dorsal aspect of the base of the proximal phalanx is appreciated on the lateral projection. Th ere is a secondary nondisplaced pathologic fracture with subtle linear lucency extending across the c ortex overlying the region of osteolysis at the medial side of the diaphysis. No other fractures iden tified. Mild hallux valgus with medial sided bunion formation. 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 IMPRESSION: Nondisplaced pathologic fracture at the right first distal phalanx with large region of ostial lysis concerning for infection and osteomyelitis. Primary malignancy and metastatic disease to the phalange s are rare and there is no evident expansion of the bone to elevate suspicion. Reviewed, dictated and finalized at location A. IMPRESSION: Nondisplaced pathologic fracture at the right first distal phalanx with large r egion of ostial lysis concerning for infection and osteomyelitis. Primary malig rolan and metastatic disease to the phalanges are rare and there is no evident expansion of the bone to elevate suspicion.
--- OUTSIDE RECORDS SUMMARY | 2025-05-07 12:14 | XMS_ITS | Clinical Summary ---
Author Organization [facility] Address [address] [place] [address] Care Team Providers Care Pleating Supervisor Name Role Phone Erica Laboy MD Unavailable [phone] Ana Macias NP Primary Care Provider [phone] Allergies No known active allergies Medications aspirin 81 mg enteric coated tabletIndicatio ns:prevention of thrombosis Take 1 tablet (81 mg total) by mouth daily 90 tablet 3 3 Active Additional Information Patient taking differently:81 mg oralEvery morning, Indications: primary prevention of coronary heart disease, Informant: Self, Reported on 02/25/2025 amLODIPine (NORVASC) 10 mg tabletIndicatio ns:hypertension 1 tablet daily -pt reported on 05/09/2023 90 tablet 3 5 Active irbesartan (AVAPRO) 300 mg tablet Take 1 tablet (300 mg total) by mouth nightly 90 tablet 3 5 12/16/19 26 Active ibuprofen (ADVIL,MOTRIN) 800 mg tablet Take 1 tablet (800 mg total) by mouth early childhood education instructor before breakfast 90 tablet 3 5 12/16/19 26 Active hydroCHLOROthia zide (MICROZIDE) 12.5 mg capsule Take 1 capsule (12.5 mg total) by mouth every morning 90 capsule 3 5 12/16/19 26 Active tadalafiL (CIALIS) 20 mg tablet TAKE 1 TABLET BY MOUTH EVERY DAY NEEDED 5 tablet 3 5 Active metoprolol XL (TOPROL-XL) 50 mg extended release tablet Take 1 tablet (50 mg total) by mouth daily 90 tablet 3 5 Active gabapentin (NEURONTIN) 300 mg capsuleIndicati ons:Neuropathic Pain Take 1 capsule (300 mg total) by mouth 3 (three) times a day 90 capsule 2 5 02/26/20 26 Active Active Problems Problem Noted Date Diagnosed Date Skin lesions 10/04/2023 Dizziness 02/15/2023 Assessment & Plan (02/15/2023 4:09 PM CDT): Likely 2/2 to doubling coreg dose incidentally. Will monitor symptoms and let us know if continues to occur. Dissection of descending thoracic aorta 02/03/20 23 Overview (02/15/2023): S/p TEVAR 02/06. BP management as outlined elsewhere. Assessment & Plan (02/12/2023 8:52 AM CDT): - Developed CP/lightheadedness while getting ABIs in outpt vasclar lab 02/02, ACT called and sent to ER - Admitted to ICU for impulse congtrol and urgent TEVAR planning. - OR 02/05 for left carotid subclavian bypass with 6 mm PTFE (Vascular, Connell) - OR 02/06 thoracic endovascular aortic stent (Cook ZDEG 34 x 30 x 199 tapered graft), placement of Amplatzer 16 mm vascular plug in the left proximal subclavian artery. - Cardiology assisted with management of blood pressure - Lumbar drain d/c'd (02/09) - Strict avoidance of hypotension - MAP goal 70-80, SBP goal < 180 - Per Cardiology (02/09): Wean esmolol gtt, start coreg 3.125mg BID; up titrate coreg to maintain BP goals. Once coreg at 25mg BID, started amlodipine 10mg daily. - Can follow BP as an outpatient and start losartan 12.5mg daily and up titrate prn Healthcare maintenance 01/01/2023 Assessment & Plan (01/29/2023 11:11 AM CDT): - A1C: with next labs - Lipids: 12/25/2022: LDL, calculated 58 Cancer - Colon[facility]: [facility], told to repeat in 5 years, didn't find anything Infectious Disease - HIV: declines - HCV: declines - GC/Ch: declines - Syphilis: declines Immunizations - Influenza: 2021 - Td/Tdap: 2019 - PCV20: 2022 - Covid: booster at last visit Assessment & Plan (01/01/2023 3:07 PM CDT): - A1C: with next labs - Lipids: 12/25/2022: LDL, calculated 58 Cancer - Colonoscopy: per [facility], told to repeat in 5 years, didn't find anything Infectious Disease - HIV: declines - HCV: declines - GC/Ch: declines - Syphilis: declines Immunizations - Influenza: 2021 - Td/Tdap: 2018 - PCV20: 2022 - Covid: received initial series and booster through [place], getting bivalent booster today Encounter for vaccination 01/01/2023 Status post endoscopic repai r of thoracic aortic aneurysm (TAA) 12/23/2022 Overview (02/15/2023): Patient with recent acute type B aortic dissection s/p TEVAR 02/06. Has had vocal cord dysfunction sense that time but otherwise uncomplicated. - Continue BP and HR control as elsewhere - Cardiology follow-up 03/16 - Vascular surgery follow up to be scheduled Assessment & Plan (12/28/2022 9:13 AM CDT): Patient with acute type B aortic dissection. As stated yesterday, this can be a life-threatening condition. At present patient is not experiencing any acute complications from the dissection. Blood pressure in the 120s and 130s. Diastolics are normal. Recommend continued beta-reji based blood pressure control with consideration for switching from losartan to a more potent Spartan drug such as irbesartan 300 mg a day and discontinuing Lasix switching to hydrochlorothiazide 25 mg a day for anti hypertensive control. Patient will require follow-up blood pressure and follow- up aortic imaging as an outpatient. 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 Assessment & Plan (02/25/2025 4:40 PM CDT): BP is elevated, discussed risks of not taking BP medications and potential complications of uncontrolled high blood pressure, including CKD, CVA. Patient agrees to take his BP medication as prescribed. Assessment & Plan (02/15/2023 4:07 PM CDT): At goal. No changes Assessment & Plan (02/12/2023 8:53 AM CDT): - Home regimen: Amlodipine 10mg Daily, Coreg 25mg BID, hydrochlorothiazide 25mg daily, irbesartan 300mg daily, spironolactone 25mg daily - Discharged on Amlodipine 10mg daily, Coreg 25mg BID; holding all other medications - PCP and outpatient Cardiology; avoid hypotension - Dr Laboy BP goals 120-160 Assessment & Plan (01/01/2023 3:02 PM CDT): Will decrease carvedilol from 37.5 to 25 mg BID due to side effects. Given BP cuff to perform home monitoring. Assessment & Plan (12/28/2022 9:11 AM CDT): Blood pressure improving. Not quite to goal. Recommend switching from losartan to a more potent ARB such as irbesartan 300 mg a day. Recommend switching from furosemide to hydrochlorothiazide 25 mg a day for hypertension. Patient will need follow-up basic metabolic profile next week and follow-up blood pressure and electrolytes as an outpatient. Acute osteomyelitis of right ankle or foot 11/17 Abscess of forearm 12/01/2015 Overview (01/06/2017): Abscess of right forearm Resolved Problems Problem Noted Date Diagnosed Date Resolved Date Tobacco use disorder 01/01/2023 023 Assessment & Plan (01/01/2023 3:02 PM CDT): Ordered LDLCT. Right rotator cuff tendinitis 06/12/2019 01/01/2023 Assessment & Plan (06/12/2019 9:28 AM CDT): The patient most likely develop rotator cuff tendinitis from overuse. After reviewing the treatment options patient elected undergo a cortisone injection today. He tolerated the procedure well. If he is having persistent issues or recurrent problems further workup may be indicated Severe episode of recurrent major depressive disorder, without psychotic features 11/28/201811/2022 Open wound of thigh 04/15/2015 01/02/20 23 Overview (01/06/2017): Open thigh wound Encounters Date Type Department Care Team Description 02/26/2025 Results Follow-Up [facility] [address] [place] [address] [address] [place] [address] Ana Macias NP Urinalysis reflex to microscopic and culture Urine, CBC with auto differential, Comprehensive metabolic panel, Additional followed-up results: 3 02/25/2025 6:04 PM CDT - 02/25/2025 11:59 PM CDT Hospital Encounter [facility] [address] [place] [address] Essential hypertension; Chronic right-sided low back pain with right-sided sciatica Discharge Disposition: Discharge to home or self care 02/25/2025 2:30 PM CDT Office Visit [facility] [address] [place] [address] [address] [place] [address] Ana Macias NP Essential hypertension (Primary Dx); Dissection of descending thoracic aorta (HCC); Chronic right-sided low back pain with right-sided sciatica; Prostate cancer screening; Encounter for lipid screening for cardiovascular disease; Skin lesion of face 02/09/2025 8:33 AM CDT - 02/09/2025 10:32 AM CDT Emergency [facility] Emergency Department [address] [place], [place] [id number] Discharge Disposition: Left without being seen from Last 3 Months Immunizations Immunization Administration Dates Next Due Influenza, Quadrivalent, Spl it, Preservative Free, Intramuscular 07/23/2020 Influenza, Unspecified 07/01/2022,2018(Deferred: Patient Refused) Pfizer Sars-Cov-2 Bivalent V accination (12+ YRS) 01/01/2023 Pneumococcal Conjugate Pcv20 01/01/2023 Td, adsorbed 06/06/2019 Surgical History Surgery Date Site/Laterality Comments OTHER SURGICAL HISTORY surgery for web finger and toes / skin grafts CHOLECYSTECTOMY unknown date BUNIONECTOMY foot surgery for bunions and callus INCISION AND DRAINAGE Incision and drainage of right forearm abscess. NECK SURGERY 10/01/2018 - 09/30/2019 FOOT SURGERY SPINE SURGERY 10/01/2018 - 09/30/2019 MSSA spinal abscess resulting in the following surgical procedure: C7 vertebrae removed. C6 partial vertebra removed. Anterior cervical fusion C6-T1; Bone allograft; anterior plating C6-T1; Debridement of extensive retropharyngeal abscess ABDOMINAL AORTIC ANEURYSM REPAIR 10/01/2022 - 09/30/2023 Endoluminal Repair Thoracoabdominal Aneurysm VASCULAR SURGERY 10/01/2022 - 09/30/2023 BYPASS - CAROTID SUBCLAVIAN LAMINECTOMY 10/01/2018 - 09/30/2019 Medical History Medical History Date Comments Spinal abscess (HCC) 06/2019 see Surgica l procedures Retropharyngeal abscess 06/2019 PPD positive, treated 06/2019 Treated wi th INH and Rifampin. Diagnosed during hospitalization for spinal abscess. HTN (hypertension) Former smoker Quit in 1979 Family History Medical History Relation Name Comments Alcohol abuse Father Pneumonia Mother No Known Problems Paternal Grandfather No Known Problems Paternal Grandmother Anesthesia problems Neg Hx Relation Name Status Comments Father Maternal Grandfather Maternal Grandmother Mother Alive Paternal Grandfather Paternal Grandmother Social History Tobacco Use Types Packs/Day Years Used Date Smoking Tobacco: Every Day Cigarettes 0.3 45.6 Started: 1979 Smokeless Tobacco: Never Tobacco Cessation:Ready to Q uit: Not Asked; Counseling Given: Not Answered Alcohol Use Standard Drinks/Week Comments No 0 (1 standard drink = 0.6 oz pur e alcohol) AUDIT-C Answer Date Recorded Q1: How often do you have a drink containing alcohol? Never 11/27/2023 Q2: How many drinks containi ng alcohol do you have on a typical day when you are drinking? Patient does not drink Q3: How often do you have si x or more drinks on one occasion? Never 11/27/2023 PHQ-2 Answer Date Recorded PHQ-2 Total Score (If total score is 3 or more points, staff should administer the PHQ-9) 0 12/03/2020 Personal Safety Answer Date Recorded Have you ever been in or are you currently in a harmful physical or emotional relationship or is someone making you feel afraid or unsafe? Denies 02/09/2025 Sex and Gender Information Value Date Recorded Sex Assigned at Not on file Legal Sex Male 5:14 PM OFFICE SUPPORT SPECIALIST Gender Identity Not on file Sexual Orientation Not on file Obstetrics History Last Filed Vital Signs Vital Sign Reading Time Taken Comments Blood Pressure 186/85 02/25/2025 1:44 PM CDT Pulse 74 02/25/2025 1:44 PM CDT Temperature 36.6 C (97.9 F) 02/09/2025 8:29 AM CDT Respiratory Rate 16 02/09/2025 8:32 AM CDT Oxygen Saturation 99% 02/09/2025 8:29 AM CDT Inhaled Oxygen Concentration - - Weight 102.1 kg (225 lb) 02/25/2025 1:44 PM CDT Height 195.6 cm (6' 5.01) 02/25/2025 1:44 PM CD T Body Mass Index 26.68 02/25/2025 1:44 PM CDT Plan of Treatment Health Maintenance Due Date Last Done Comments Colon Cancer Screening-Colonoscopy 1960 Hepatitis B Screening 1978 Depression Screening 12/03/2021 12/03/2020, 09/11/2019, 06/10/2019 Covid-19 Vaccine (2023-2 5 season) 2024 01/01/2023 Fall Risk Assessment 11/27/2024 11/27/2023, 12/03/2020, 09/11/2019 Abdominal Aortic Aneurysm (A AA) Screen 2025 03/14/2024, 10/09/2023, 09/07/2023, Additional history exists Well Visit 65+ 2025 12/03/2020 Zoster Vaccine (2 of 2) 05/12/2025 03/17/2025 Influenza Vaccine (#1) 2025 07/01/2022, 2019 Prostate Cancer Screening-PSA 02/25/2027 02/25/2025, 12/03/2020 DTaP/Tdap/Td Vaccine (2 - Td or Tdap) 03/17/2035 03/17/2025, 06/06/2019 Hepatitis C Screening Completed 12/03/2020 Pneumococcal vaccine 65+ Completed 01/01/2023 Medical Devices Implanted Type Area Tape Recorder Repairer Device Identifier Shelf Expiration Date Model / Serial / Lot [employer] Florence 6mm 50cm 40cm Removable Ring Stretch Thin Wall Graft [id number] - [id number] - [id number] Implanted:Qty : 1 on 02/05/2023 by Erica Laboy MD at [facility] Graft Left: Carotid Wl [employer] [id number] 07/03/2026 [id number] / [id number] / Abyrx Os-201 Hemasorb Os-Spa Spatula Wax 2gm Bone Sterile - Sna - [id number] Implanted:Qty : 1 on 06/17/2019 by Chaparro Dewey MD at [facility] N/A: Neck Abyrx 06/30/2021 OS-201 / NA / [id number] Abyrx Os-201 Hemasorb Os-Spa Spatula Wax 2gm Bone Sterile - Sna - [id number] Implanted:Qty : 1 on 06/17/2019 by Chaparro Dewey MD at [facility] N/A: Neck Abyrx 04/30/2021 OS-201 / NA / [id number] Allosource [id number] 15cm Frozen Graft Bone Fibula Segment - [id number] Implanted:Qty : 1 on 06/17/2019 by Chaparro Dewey MD at [facility] N/A: Neck Allosource 08/23/2023 [id number] / / [id number] Screw 4.0x18mm Self Drilling Variable - [id number] Implanted:Qty : 4 on 06/17/2019 by Chaparro Dewey MD at [facility] N/A: Neck [employer] 31-4317 / / Plate 2-Level 46 Mm Cervical - [id number] Implanted:Qty : 1 on 06/17/2019 by Chaparro Dewey MD at [facility] N/A: Neck [employer] [id number] / / [employer] Zenith Tx2 Pro-Form 30-34mm 30mm 20fr 199mm Proximal Taper [id number] - [id number] Implanted:Qty : 1 on 02/06/2023 by Erica Laboy MD at [facility] [employer] [id number] / / [id number] Wood Vascular Device Clsr Perclose Prostyle Sut-Mediatd Closure-Repai r Sys 50722-04 - [id number] Implanted:Qty : 1 on 02/06/2023 by Erica Laboy MD at [facility] Right: Groin [employer] [id number] 11/28/2024 127 73-03 / / [id number] Wood Vascular Device Clsr Perclose Prostyle Sut-Mediatd Closure-Repai r Sys 22480-98 - [id number] Implanted:Qty : 1 on 02/06/2023 by Erica Laboy MD at [facility] Right: Groin [employer] [id number] 11/28/2024 127 73-03 / / [id number] Amplatzer Associate Professor Of Criminal Justice Manuel 9-[id number]-016 Amplatzer 16mm 10mm 100cm Type Ii Delivery System Optimal Latex Free - [id number] Implanted:Qty : 1 on 02/06/2023 by Erica Laboy MD at [facility] Left: Subclavian [employer] [id number] 10/31/2026 9-AVP2-016 / / [id number] Wood Vascular Device Clsr Perclose Prostyle Sut-Mediatd Closure-Repai r Sys 91365-11 - [id number] Implanted:Qty : 1 on 02/06/2023 by Erica Laboy MD at [facility] Left: Groin [employer] [id number] 11/28/2024 [id number] 3 [id number] Procedures Procedure Name Priority Date/Time Associated Diagnosis Comments LIPID PANEL Routine 02/25/2025 2:10 PM CDT Encounter for lipid screening for cardiovascular disease THYROID FUNCTION CASCADE Routine 02/25/2025 2:10 PM CDT Essential hypertension Chronic right-sided low back pain with right-sided sciatica PSA SCREEN Routine 02/25/2025 2:10 PM CDT Prostate cancer screening COMPREHENSIVE METABOLIC PANEL Routine 02/25/2025 2:10 PM CDT Essential hypertension Chronic right-sided low back pain with right-sided sciatica CBC WITH AUTO DIFFERENTIAL Routine 02/25/2025 2:10 PM CDT Essential hypertension Chronic right-sided low back pain with right-sided sciatica URINALYSIS AND REFLEX TO MICROSCOPIC AND CULTURE Routine 02/25/2025 2:10 PM CDT Essential hypertension Chronic right-sided low back pain with right-sided sciatica CTA CHEST ABDOMEN PELVIS Schedule Routine, Read Routine (OP Routine) 03/14/2024 11:06 AM CDT Dissection of descending thoracic aorta (HCC) Status post endoscopic repair of thoracic aortic aneurysm (TAA) Encounter for surgical aftercare following surgery on the circulatory system HEPATITIS C ANTIBODY Routine 12/03/2020 10:16 AM OFFICE SUPPORT SPECIALIST Encounter for hepatitis C screening test for low risk patient from Last 3 Months or Most Recently Relevant to Health Maintenance Results * Thyroid Function [place] (02/25/2025 2:10 PM CDT) TSH 2.07 0.27 - 4.20 uIU/mL [facility] Blood 02/25/2025 2:10 PM CDT 02/25/2025 3:14 PM CDT us Ana Macias TRANSPORTER RADIOLOGY LAB BLOOD ORDERABLES Final Re sult RADHA LAZARODA [address] [facility] [address] [place] [address] * PSA screen (02/25/2025 2:10 PM CDT) PSA, Total 1.4 0.0 - 4.0 ng/mL [facility] Blood 02/25/2025 2:10 PM CDT 02/25/2025 3:14 PM CDT us Ana Macias TRANSPORTER RADIOLOGY LAB BLOOD ORDERABLES Final Re sult RADHA RUGGIERO [address] [facility] [address] [place] [address], [place] * (ABNORMAL) CBC with auto differential (02/25/2025 2:10 PM CDT) WBC 9.1 3.5 - 10.0 K/uL [facility] RBC 5.34 4.60 - 6.20 M/uL [facility] Hemoglobin 13.9 13.9 - 17.7 g/dL [facility] Hematocrit 39.9 35.0 - 55.0 % [facility] MCV 74.8(L) 75.0 - 100.0 fL [facility] MCH 26.10 25.00 - 35.00 pg [facility] MCHC 34.90 31.00 - 38.00 g/dL [facility] RDW 14.6 11.0 - 16.0 % [facility] Platelets 193 140 - 400 K/uL [facility] MPV 10.7 8.0 - 11.0 fL [facility] Granulocyte, Absolute 6.2 1.2 - 8.0 K/uL [facility] Lymphocyte, Absolute 2.2 0.5 - 5.0 K/uL [facility] Monocyte, Absolute 0.7 0.1 - 1.5 K/uL [facility] Granulocyte, Percentage 68.2 35.0 - 80.0 % [facility] Lymphocyte, Percentage 24.7 15.0 - 50.0 % [facility] Monocyte, Percentage 7.1 2.0 - 15.0 % [facility] Blood 02/25/2025 2:10 PM CDT 02/25/2025 3:14 PM CDT Ana Macias TRANSPORTER RADIOLOGY LAB BLOOD ORDERABLES Final Re sult RADHA RUGGIERO [address] [facility] [address] * Lipid panel (02/25/2025 2:10 PM CDT) Triglyceride 52 0 - 150 mg/dL [facility] Cholesterol 131 0 - 200 mg/dL [facility] HDL 48 >35 mg/dL [facility] LDL-Calculated 73 mg/dL [facility] CHOL/HDL Risk Ratio 3 Ratio [facility] LDL/HDL Risk Ratio 2 Ratio [facility] Blood 02/25/2025 2:10 PM CDT 02/25/2025 3:14 PM CDT Ana Macias TRANSPORTER RADIOLOGY LAB BLOOD ORDERABLES Final Re sult Performing Organization Address [facility]/ZIP Co de Phone Number RADHA RUGGIERO [address] [facility] [address] * (ABNORMAL) Comprehensive metabolic panel (02/25/2025 2:10 PM CDT) Glucose 85 74 - 200 mg/dL [facility] BUN 11(L) 18 - 23 mg/dL [facility] Creatinine 1.0 0.7 - 1.3 mg/dL [facility] BUN/Creat Ratio 11 Ratio [facility] Bilirubin, Total 0.7 0.0 - 1.2 mg/dL [facility] AST (SGOT) 15 0 - 40 U/L [facility] ALT (SGPT) 12 10 - 50 U/L [facility] Alkaline phosphatase 152(H) 40 - 129 U/L [facility] Calcium 9.2 8.8 - 10.2 mg/dL [facility] Sodium 137 135 - 145 mEq/L [facility] Potassium 4.1 3.5 - 5.1 mEq/L [facility] Chloride 105 98 - 107 mEq/L [facility] CO2 22.5 22.0 - 32.0 mEq/L [facility] Anion Gap 10 3 - 12 mEq/L [facility] Total Protein 7.0 6.0 - 8.1 g/dL [facility] Albumin 4.2 3.5 - 5.2 g/dL [facility] Globulin 2.8 g/dL [facility] Albumin/Globulin 1.5 Ratio [facility] eGFR 83.96 [facility] Blood 02/25/2025 2:10 PM CDT 02/25/2025 3:14 PM CDT us Ana Macias TRANSPORTER RADIOLOGY LAB BLOOD ORDERABLES Final Re sult RADHA RUGGIERO [address] [address] * Urinalysis reflex to microscopic and culture Urine (02/25/2025 2:10 PM CDT) Color, ur Straw Yellow Clarity, ur Clear Clear [facility] Specific gravity, ur 1.017 1.003 - 1.[address] [facility] pH, urine 6.[address] [facility] Comment: Interpretive Data U rine pH is affected by diet, medications, systemic acid-base disturbances, and renal tubular function. pH may affect urinary stone formation. For example, urine pH below 6.0 may help reduce the tendency for calcium phosphate stones and pH greater than 6.0 may reduce the tendency for uric acid stone formation. Source: [facility] Current Interpretive Data was last revised on 2017 Protein, ur ql Negative Negative [facility] Glucose, ur ql Negative Negative [facility] Ketones[facility] ur Negative Negative [facility] Bilirubin, ur Negative Negative [facility] Blood, ur Negative Negative [facility] Urobilinogen, ur <2.0 <2.0 mg/dL [facility] Nitrite, ur Negative Negative [facility] Leukocyte esterase, ur Negative Negative [facility] UA reflex comment Reflex conditions for microscopic UA and culture not met. [facility] Urine 02/25/2025 2:10 PM CDT 02/25/2025 6:48 PM CDT us Ana Macias NP LAB MICROBIOLOGY - GENERAL OR DERABLES Final Result [facility] Department [place] [address] * CTA Chest Abdomen Pelvis (03/14/2024 11:06 AM CDT) Anatomical Region Laterality Modality Body N/A Computed Tomogra phy 03/14/2024 12:4 1 PM CDT Impressions 03/14/2024 1:53 PM CDT 1. Stable type B aortic dissection status post endovascular stenting and left carotid to left subclavian bypass, with persistent dissection flap extending into the mid abdominal aorta, unchanged in configuration from the prior examination. Dictated by: Idris Orantes MD The radiology attending physician has personally reviewed this study, and had reviewed and/or edited this written report and agrees with it. Electronically signed by: Navin Kulkarni M.D. Narrative 03/14/2024 1:53 PM CDT EXAMINATION: CT ANGIOGRAPHY OF THE CHEST, ABDOMEN AND PELVIS WITH AND WITHOUT CONTRAST HISTORY: Type B aortic dissection status post left carotid subclavian bypass 02/05/2023 and thoracic endovascular stent dated 02/06/2023 TECHNIQUE: CT angiography of the chest, abdomen and pelvis was performed prior to and following the uneventful intravenous administration of 70 ml [id number] using the post-endoluminal stent graft protocol. Vascular 3D images were generated on a dedicated workstation and also reviewed. COMPARISON: CT dated 10/09/2023 FINDINGS: VASCULAR FINDINGS: Thoracic: There is a type B aortic dissection status post endovascular stent. The proximal attachment site is at the level of the takeoff of the occluded left subclavian artery, and the distal attachment site is in the mid descending thoracic aorta. There has been no migration of the graft since the last exam. There is persistent dissection flap extending slightly superiorly into the stented aorta and terminates just superior to the inferior mesenteric artery takeoff. The maximum diameter of the dissected thoracic aorta is 31 mm AP x 34 mm [id number]. This is stable since the prior exam. The maximum diameter of the graft is 32 mm AP x 31 mm [id number]. This is stable since the prior exam. Left common carotid to left subclavian bypass is patent. There is an Amplatzer occluder device at the origin of the left subclavian arteries. Abdominal: The dissection flap propagates to the mid abdominal aorta. The celiac and superior mesenteric arteries arise from the true lumen. The left renal artery arises from the true lumen. The right renal artery arises from the false lumen. There is a fenestration at the level of the right renal artery takeoff. No visceral stents are present. NON-VASCULAR FINDINGS: Chest: There is an unchanged right lower lobe 6 mm pulmonary nodule. A few additional scattered pulmonary nodules are also unchanged. Heart size is normal. Coronary calcifications are present there is no mediastinal lymphadenopathy.] Abdomen/Pelvis: There is no liver surface nodularity. No focal liver lesions seen. Gallbladder. The pancreas and spleen are normal. The kidneys and adrenal glands are normal. The stomach, small bowel and colon are unremarkable. The bladder is mildly distended and otherwise normal. The prostate is enlarged. There is no suspicious osseous lesion. There is no lymphadenopathy. Benign appearing fibroosseous lesion seen in the left femur. Multilevel lumbar laminectomy. Procedure Note Navin Kulkarni MD - 03/14/2024 EXAMINATION: CT ANGIOGRAPHY OF THE CHEST, ABDOMEN AND PELVIS WITH AND WITHOUT CONTRAST HISTORY: Type B aortic dissection status post left carotid subclavian bypass 02/05/2023 and thoracic endovascular stent dated 02/06/2023 TECHNIQUE: CT angiography of the chest, abdomen and pelvis was performed prior to and following the uneventful intravenous administration of 70 ml [id number] using the post-endoluminal stent graft protocol. Vascular 3D images were generated on a dedicated workstation and also reviewed. COMPARISON: CT dated 10/09/2023 FINDINGS: VASCULAR FINDINGS: Thoracic: There is a type B aortic dissection status post endovascular stent. The proximal attachment site is at the level of the takeoff of the occluded left subclavian artery, and the distal attachment site is in the mid descending thoracic aorta. There has been no migration of the graft since the last exam. There is persistent dissection flap extending slightly superiorly into the stented aorta and terminates just superior to the inferior mesenteric artery takeoff. The maximum diameter of the dissected thoracic aorta is 31 mm AP x 34 mm [id number]. This is stable since the prior exam. The maximum diameter of the graft is 32 mm AP x 31 mm [id number]. This is stable since the prior exam. Left common carotid to left subclavian bypass is patent. There is an Amplatzer occluder device at the origin of the left subclavian arteries. Abdominal: The dissection flap propagates to the mid abdominal aorta. The celiac and superior mesenteric arteries arise from the true lumen. The left renal artery arises from the true lumen. The right renal artery arises from the false lumen. There is a fenestration at the level of the right renal artery takeoff. No visceral stents are present. NON-VASCULAR FINDINGS: Chest: There is an unchanged right lower lobe 6 mm pulmonary nodule. A few additional scattered pulmonary nodules are also unchanged. Heart size is normal. Coronary calcifications are present there is no mediastinal lymphadenopathy.] Abdomen/Pelvis: There is no liver surface nodularity. No focal liver lesions seen. Gallbladder. The pancreas and spleen are normal. The kidneys and adrenal glands are normal. The stomach, small bowel and colon are unremarkable. The bladder is mildly distended and otherwise normal. The prostate is enlarged. There is no suspicious osseous lesion. There is no lymphadenopathy. Benign appearing fibroosseous lesion seen in the left femur. Multilevel lumbar laminectomy. IMPRESSION: 1. Stable type B aortic dissection status post endovascular stenting and left carotid to left subclavian bypass, with persistent dissection flap extending into the mid abdominal aorta, unchanged in configuration from the prior examination. Dictated by: Idris Orantes MD The radiology attending physician has personally reviewed this study, and had reviewed and/or edited this written report and agrees with it. Electronically signed by: Navin Kulkarni M.D. Erica Laboy MD IMG CT PROCEDURES Final R esult * Hepatitis C antibody (12/03/2020 10:16 AM OFFICE SUPPORT SPECIALIST) Hep C Ab Nonreactive Nonreactive CHARLEE ACHARYA Comment: Interpretive Data Nonreactive: Antibodies to HCV not detected. Does NOT exclude the possibility of recent exposure to HCV. Equivocal: Equivocal for HCV antibodies. Supplemental molecular testing will be automatically performed to determine infection status in accordance with current CDC screening recommendations. Reactive: Positive for HCV antibodies. This may represent current or past HCV infection. Supplemental molecular testing will be automatically performed to determine current infection status in accordance with current CDC screening recommendations. Interpretive data was last revised on 2019. Blood specimen (specimen) 12/03/2020 10:16 AM OFFICE SUPPORT SPECIALIST 12/03/2020 12:32 PM OFFICE SUPPORT SPECIALIST Simeon Lawton NP LAB MICROBIOLOGY - GENERAL OR DERABLES Final Result [facility] [address] Department [place] [address] from Last 3 Months or Most Recently Relevant to Health Maintenance Insurance [facility] CHOICE [employer] ACCESS CHOICE FORMERLY [facility] HMO/PPO Address: [address] [place] [address] [facility] ACCESS CHOICE [facility] Advance Directives For more information, please contact: [phone] * Full Code (Latest Code Status on File) Date Activated Date Inactivated Comments 02/02/2023 11:57 PM 02/12/2023 3:40 PM * LIMITED - No CPR Date Activated Date Inactivated Comments 12/23/2022 1:27 PM 12/29/2022 4:24 PM Question Answer Comments Provide aggressive medical m anagement before a full cardiopulmonary arrest occurs. Use antibiotics, IV Fluids, and medical treatment unless specifically selected below: No intubation * Full Code Date Activated Date Inactivated Comments 12/23/2022 12:52 PM 12/23/2022 1:26 PM * Full Code Date Activated Date Inactivated Comments 06/17/2019 8:20 AM 06/28/2019 6:01 PM Care Teams Pleating Supervisor Relationship Specialty Start Date End Date Ana Macias NP [address] [address] PCP - General Nurse Practitioner 02/25/25 Erica Laboy MD Surgeon Vascular Surgery 02/12/23
--- OUTSIDE RECORDS SUMMARY | 2025-05-07 12:14 | XMS_ITS | Clinical Summary ---
Author Organization [facility] Address [address] [place] [address] Care Team Providers Care Turbine Inspector Name Role Phone [facility] Primary C are Provider Source Comments [facility],non-owned Affiliates and Associated Physician Practices is amultiple site organization consisting of ambulatory clinics and hospital sitesin [place], [place] and [place]. This disclosure is being madepursuant to the Care Everywhere program and may not contain all information available regarding this patient. Last updated 18.[facility] Allergies No known active allergies Medications * This document contains information received from the source organization and may not represent a complete record from that organization. * Be aware that medications may not be up to date on this document. Alwaysverify current medications with the patient. DULoxetine (CYMBALTA) 60 MG capsuleIndicati ons:Major Depressive Disorder Take 1 capsule by mouth at bedtime Reasons: Major Depressive Disorder 30 capsule 1 9 Active nicotine (NICODERM CQ) 21 MG/24HR patchIndication s:Nicotine Dependence Apply 1 patch to skin once daily Remove old patch before applying new patch. Reasons: Nicotine Addiction 30 patch 1 9 Active Active Problems Problem Noted Date Diagnosed Date Severe episode of recurrent major depressive disorder, without psychotic features 11/28/2018 Acute osteomyelitis of right ankle or foot 11/17 Social History Tobacco Use Types Packs/Day Years Used Date Smoking Tobacco: Every Day Cigarettes Smokeless Tobacco: Never Tobacco Cessation:Ready to Q uit: No; Counseling Given: Yes Alcohol Use Standard Drinks/Week Comments No 0 (1 standard drink = 0.6 oz pur e alcohol) Sex and Gender Information Value Date Recorded Sex Assigned at Not on file Legal Sex Male 5:50 AM CADDY/CADDIE SUPERVISOR Gender Identity Not on file Sexual Orientation Not on file Last Filed Vital Signs Vital Sign Reading Time Taken Comments Blood Pressure 138/92 11/30/2018 8:37 AM CADDY/CADDIE SUPERVISOR Pulse 75 11/30/2018 8:37 AM CADDY/CADDIE SUPERVISOR Temperature 36.6 C (97.8 F) 11/30/2018 8:37 AM CADDY/CADDIE SUPERVISOR Respiratory Rate 16 11/30/2018 8:37 AM CADDY/CADDIE SUPERVISOR Oxygen Saturation 100% 11/30/2018 8:37 AM CADDY/CADDIE SUPERVISOR Inhaled Oxygen Concentration - - Weight 98.7 kg (217 lb 11.2 oz) 11/28/2018 9:30 PM CADDY/CADDIE SUPERVISOR Height 195.6 cm (6' 5) 11/28/2018 9:30 PM CADDY/CADDIE SUPERVISOR Body Mass Index 25.82 11/28/2018 9:30 PM CADDY/CADDIE SUPERVISOR Plan of Treatment Health Maintenance Due Date Last Done Comments COLOGUARD (AGES 45-75) - COL ON CA SCREENING 1960 COLON MONITORING 1960 COLONOSCOPY - COLON CA SCREENING 1960 CT COLONOGRAPHY - COLON CA SCREENING 1960 Colorectal Cancer Screening 1960 FIT - COLON CA SCREENING 1960 FLEX SIG - COLON CA SCREENING 1960 HIV SCREENING 1975 HEPATITIS C SCREENING 04/17/1978 DTAP/TDAP/TD VACCINES (1 - Tdap) 1979 PNEUMOCOCCAL VACCINE 50+ (1 of 1 - PCV) 2010 ZOSTER VACCINE (1 of 2) 2010 LIPID TESTING 11/28/2023 11/28/2018 COVID-19 VACCINE (1 - 2023-2 5 season) 2024 DEPRESSION SCREENING 10/01/2024 AAA SCREENING 2025 INFLUENZA VACCINE (#1) 2025 Respiratory Syncytial Virus (RSV) Vaccine Pt: or over 60 yrs (1 - 1-dose 75+ series) 2035 HEPATITIS B VACCINE Aged Out No longe r eligible based on patient's age to complete this topic HIB VACCINE Aged Out No longer eligi ble based on patient's age to complete this topic HPV VACCINE Aged Out No longer eligi ble based on patient's age to complete this topic MENINGOCOCCAL (Group B) VACC INE SHARED DECISION-MAKING Aged Out No longer eligibl e based on patient's age to complete this topic MENINGOCOCCAL GROUPS A/C/Y/W VACCINE Aged Out No longer eligible b ased on patient's age to complete this topic Procedures Procedure Name Priority Date/Time Associated Diagnosis Comments LIPID PROFILE AM Draw 11/28/2018 3:18 PM CADDY/CADDIE SUPERVISOR from Last 3 Months or Most Recently Relevant to Health Maintenance Results * LIPID PROFILE (11/28/2018 3:18 PM CADDY/CADDIE SUPERVISOR) Pathologist [facility] [place] Cholesterol 122 <200 mg/dL 11/29/2018 10:33 AM [facility] Triglycerides 52 <150 mg/dL 11/29/2018 10:33 AM [facility] HDL Cholesterol 45 >40 mg/dL 9 10:33 AM [facility] LDL Calculated 67 <130 mg/dL 11/29/2018 10:33 AM [facility] VLDL Calculated 10 <=30 mg/dL 9 10:33 AM [facility] Chol HDL Ratio 2.7 <4.5 11/29/2018 10:33 AM [facility] LDL/HDL Ratio 1.5 <5.0 11/29/2018 10:33 AM [facility] Blood BLOOD SPECIMEN / Unknown Venipuncture / Unknown 11/28/2018 3:18 PM CADDY/CADDIE SUPERVISOR 11/29/2018 6:17 AM CADDY/CADDIE SUPERVISOR Ashley Hines HAND ROUNDER-TIN PLATER LAB - CHEMISTRY ORDERABLE S Final Result [facility] [address] [place] [address] from Last 3 Months or Most Recently Relevant to Health Maintenance Insurance [facility] [employer] [facility] Advance Directives * Full Code (Latest Code Status on File) Date Activated Date Inactivated Comments 11/28/2018 9:45 PM 11/30/2018 2:46 PM Care Teams Turbine Inspector Relationship Specialty Start Date End Date [facility], [facility] [address] [place] [address] PCP - General 11/28/18
--- NOTE | 2025-05-07 12:16 | ED.LOWEXIN ---
HPI - Extremity Injury (Lower) General Chief Complaint: Extremity Injury, Lower Stated Complaint: foot injury /swelling/ Time Seen by Provider: 05/07/25 12:31 Source: patient, RN notes reviewed and old records reviewed Mode of arrival: ambulatory Limitations: no limitations History of Present Illness HPI Narrative: 65-year-old male presents to the [facility] with complaints of pain to the right foot, swelling, open wound. States that he dropped a 2 x 8 on his toe Sunday, blister popped yesterday has been draining brown to yellow purulent drainage since. Area of redness, increased warmth and tenderness to the great toe. Has been trying to keep it clean and dry. patient first reported no past medical history. Per medication history is supposed to be on blood pressure medication. Older medication record shows a aortic dissection, CABG,high blood pressure, high cholesterol, stents. Dr. Watson Patient reports he has not been taking his medication Onset (ago): day(s) (3) Treatments prior to arrival: bandage Related Data Home Medications ?Medication ?Instructions ?Recorded ?Confirmed ?Last Taken ?Type No Home Medications 05/07/25 05/07/25 Unknown History Allergies Allergy/AdvReac Type Severity Reaction Status Date / Time No Known Allergies Allergy Verified 05/07/25 12:25 Review of Systems Review of Systems: All systems reviewed & are unremarkable except as noted in HPI and below Constitutional: Constitutional: Reports no additional constitutional complaints Musculoskeletal: Musculoskeletal: Reports as per HPI Integumentary/Breasts: Skin/Breast: Reports as per HPI [facility] Social History Social History Smoking status: Current every day smoker Tobacco type: cigarettes Alcohol intake: former Substance use: current Substance use type: marijuana Lack of Transportation: No Lack of Food: Never True Current Housing: I Have Housing Concerned About Future Housing: No Difficulty Paying Gas/Electric Bills: No Difficulty Paying for Meds: No Currently Unemployed: No Education: High School Diploma/GED Difficulty w/ Childcare or Family Care: No Spiritual care concerns: No Comments At the time of my signature, I reviewed and agree with the nursing past medical, surgical, social, and family history. There is no relevant family history pertinent to the patient complaint. Exam Const: General: cooperative, healthy appearing, comfortable, no acute distress, well developed, alert and well nourished Nutritional Appearance: well nourished Orientation/consciousness: patient oriented x3 Limitations: no limitations HENMT: Head: normal to inspection Eyes: General: appearance normal, both eyes and all related structures Alignment and Position: alignment normal Neck: Neck: normal visual inspection, full ROM, no lymphadenopathy and no meningeal signs Chest: Chest palpation & inspection: normal inspection of the chest Resp: Effort & Inspection: normal respiratory effort and able to speak in complete sentences Cardio: Rate: regular rate Skin: General skin exam: normal color and no rashes or lesions noted Wounds: wounds noted Other: 3.5 x 2 cm open area Neuro: General: patient oriented x3, moves all extremities and no meningeal signs Cognition (Neuro): normal cognition Speech: normal speech Extrem: General: normal to inspection, full ROM, capillary refill normal and abnormal gait (limp) Right lower extremity: foot Details: tenderness Location: of the great toe Location: along the entire digit, abnormal ROM of toe Details: pain with active ROM and pain with passive ROM and warmth Psych: Appearance: grossly normal and well kempt Mental Status: mental status grossly normal Speech and movement: Normal speech and movement present and Clear speech present Affect: normal affect Attitude: cooperative Course Course Level of Care: Express Care Visit Vital Signs Vital signs: Vital Signs Temperature 97.2 F L 05/07/25 12:25 Pulse Rate 72 05/07/25 12:25 Respiratory Rate 18 05/07/25 12:25 Blood Pressure 176/86 H 05/07/25 12:25 Pulse Oximetry 100 05/07/25 12:25 Oxygen Delivery Room Air 05/07/25 12:25 Temperature 97.2 F L 05/07/25 12:25 Pulse Rate 72 05/07/25 12:25 Respiratory Rate 18 05/07/25 12:25 Blood Pressure 176/86 H 05/07/25 12:25 Pulse Oximetry 100 05/07/25 12:25 Oxygen Delivery Room Air 05/07/25 12:25 Reviewed Transfer Transfered to: [place] Transportation: Other (POV) Transfer rationale: X-ray report shows possible osteomyelitis, pathologic fracture, sending for higher level care Accepting physician: Spoke with Dr. Martinez [facility] - Extremity Injury (Lower) MDM Narrative Medical decision making narrative: Patient sitting in exam room. Patient is nontoxic, vitals except blood pressure are stable. Blood pressure is elevated, has not been taking prescribed medications. Patient injury on Sunday, 3 days ago now with purulent drainage, significant tenderness throughout the entire great toe with redness to mid foot, tenderness 1st metatarsal X-ray shows possibility of osteomyelitis, culture collected and sent to lab Sending for higher level of care due to concerns of osteomyelitis. Transfer instructions reviewed with patient go directly to the ER. All questions have been answered, and the patient deny any further questions Some parts of this dictation were generated by voice recognition software and may contain typographical and/or grammatical inaccuracies. Differential Diagnosis Differential diagnosis: Likely other (Cellulitis, osteomyelitis, fracture,) Imaging Data Radiologist's impression: EXAMINATION: XR toe 1st RT min 2V DATE: 05/07/2025 12:49 INDICATION: Right great toe injury post injury TECHNIQUE: Dorsal plantar, lateral and 2 oblique views of the right great toe were obtained. COMPARISON: None FINDINGS: Large region of ostial lysis involving the distal phalanx of the right great toe with prominent lucency extending between a large erosion at the medial aspect of the tuft and a smaller cortical erosion at the dorsal aspect of the base of the proximal phalanx is appreciated on the lateral projection. There is a secondary nondisplaced pathologic fracture with subtle linear lucency extending across the cortex overlying the region of osteolysis at the medial side of the diaphysis. No other fractures identified. Mild hallux valgus with medial sided bunion formation. 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 IMPRESSION: Nondisplaced pathologic fracture at the right first distal phalanx with large region of ostial lysis concerning for infection and osteomyelitis. Primary malignancy and metastatic disease to the phalanges are rare and there is no evident expansion of the bone to elevate suspicion. Critical Care Time Critical Care Time Critical Care Time: No Discharge Plan Discharge Clinical Impression: Infection of toe, Elevated blood pressure reading Fracture of great toe Qualifiers: Encounter type: initial encounter Fracture type: open Phalanx: unspecified phalanx Fracture alignment: nondisplaced Laterality: right Qualified Code(s): S92.404B - Nondisplaced unspecified fracture of right great toe, initial encounter for open fracture Patient Disposition: Acute Care Hospital Condition: Stable Patient Language: Setswana Prescriptions: No Action No Home Medications Follow-up/Referrals: UNKNOWN,DOCTOR [Primary Care Provider] -
[2025-05-07 12:25] VITALS: BP 176/86; PULSE 72; RESP 18; TEMP 36.2; O2SAT 100
== END 2025-05-07 13:13 | disposition short-term general hospital (02) ==
PROVIDERS: Emergency Provider Nurse Practitioner
DX: L08.9 Local infection of the skin and subcutaneous tissue, unspecified (principal); I10 Essential (primary) hypertension; S92.424B Nondisplaced fracture of distal phalanx of right great toe, initial encounter for open fracture; W20.8XXA Other cause of strike by thrown, projected or falling object, initial encounter; F17.210 Nicotine dependence, cigarettes, uncomplicated; I71.00 Dissection of unspecified site of aorta; E78.00 Pure hypercholesterolemia, unspecified; Z95.5 Presence of coronary angioplasty implant and graft
CPT/HCPCS: 73660; 87070; 87075; 99213; G0463

== ENCOUNTER 2025-05-07 14:10 | Emergency (ER) | payer BC, SELFPAY ==
--- OUTSIDE RECORDS SUMMARY | 2025-05-07 14:12 | XMS_ITS | Clinical Summary ---
Author Organization [facility] Address [address] [place] [address] Care Team Providers Care Dean Of Education Name Role Phone Erica Laboy MD Unavailable [phone] Ana Macias NP Primary Care Provider [phone] Allergies No known active allergies Medications aspirin [...] 1 tablet (800 mg total) by mouth engineer technical staff before breakfast 90 tablet 3 5 12/16/19 [...] Covid: received initial series and booster through [place], getting bivalent booster today Encounter for vaccination [...] Department Care Team Description 02/26/2025 Results Follow-Up [facility] [address] [place] [address] [address] [place] [address] Ana Macias NP Urinalysis reflex to microscopic and culture Urine, CBC with auto differential, Comprehensive metabolic panel, Additional followed-up results: 3 02/25/2025 6:04 PM CDT - 02/25/2025 11:59 PM CDT Hospital Encounter [facility] [address] [place] [address] Essential hypertension; Chronic right-sided low back pain with right-sided sciatica Discharge Disposition: Discharge to home or self care 02/25/2025 2:30 PM CDT Office Visit [facility] [address] [place] [address] [address] [place] [address] Ana Macias NP Essential hypertension (Primary Dx); Dissection of descending thoracic aorta (HCC); Chronic right-sided low back pain with right-sided sciatica; Prostate cancer screening; Encounter for lipid screening for cardiovascular disease; Skin lesion of face 02/09/2025 8:33 AM CDT - 02/09/2025 10:32 AM CDT Emergency [facility] Emergency Department [address] [place], [place] [id number] Discharge Disposition: Left without being seen from [...] on file Legal Sex Male 5:14 PM 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 MANAGEMENT MANAGER Gender Identity Not on file Sexual Orientation [...] Completed 01/01/2023 Medical Devices Implanted Type Area Fnp Device Identifier Shelf Expiration Date Model / Serial / Lot [employer] Port [place] 6mm 50cm 40cm Removable Ring Stretch Thin Wall Graft [id number] - [id number] - [id number] Implanted:Qty : 1 on 02/05/2023 by Erica Laboy MD at [facility] Graft Left: Carotid Wl [employer] [id number] 07/03/2026 [id number] / [id number] / Abyrx Os-201 Hemasorb Os-Spa Spatula Wax 2gm Bone Sterile - Sna - [id number] Implanted:Qty : 1 on 06/17/2019 by Chaparro Dewey MD at [facility] N/A: Neck Abyrx 06/30/2021 OS-201 / NA / [id number] Abyrx Os-201 Hemasorb Os-Spa Spatula Wax 2gm Bone Sterile - Sna - [id number] Implanted:Qty : 1 on 06/17/2019 by Chaparro Dewey MD at [facility] N/A: Neck Abyrx 04/30/2021 OS-201 / NA / [id number] Allosource [id number] 15cm Frozen Graft Bone Fibula Segment - [id number] Implanted:Qty : 1 on 06/17/2019 by Chaparro Dewey MD at [facility] N/A: Neck Allosource 08/23/2023 [id number] / / [id number] Screw 4.0x18mm Self Drilling Variable - [id number] Implanted:Qty : 4 on 06/17/2019 by Chaparro Dewey MD at [facility] N/A: Neck [employer] [id number] / / Plate 2-Level 46 Mm Cervical - [id number] Implanted:Qty : 1 on 06/17/2019 by Chaparro Dewey MD at [facility] N/A: Neck [employer] [id number] / / [employer] Zenith Tx2 Pro-Form 30-34mm 30mm 20fr 199mm Proximal Taper [id number] - [id number] Implanted:Qty : 1 on 02/06/2023 by Erica Laboy MD at [facility] [employer] [id number] / / [id number] Wood Vascular Device Clsr Perclose Prostyle Sut-Mediatd Closure-Repai r Sys 60658-22 - [id number] Implanted:Qty : 1 on 02/06/2023 by Erica Laboy MD at [facility] Right: Groin [employer] [id number] 11/28/2024 127 73-03 / / [id number] Wood Vascular Device Clsr Perclose Prostyle Sut-Mediatd Closure-Repai r Sys 85501-92 - [id number] Implanted:Qty : 1 on 02/06/2023 by Erica Laboy MD at [facility] Right: Groin [employer] [id number] 11/28/2024 127 73-03 / / [id number] Amplatzer Converter Supervisor Manuel 9-[id number]-016 Amplatzer 16mm 10mm 100cm Type Ii Delivery System Optimal Latex Free - [id number] Implanted:Qty : 1 on 02/06/2023 by Erica Laboy MD at [facility] Left: Subclavian [employer] [id number] 10/31/2026 9-AVP2-016 / / [id number] Wood Vascular Device Clsr Perclose Prostyle Sut-Mediatd Closure-Repai r Sys 63342-37 - [id number] Implanted:Qty : 1 on 02/06/2023 by Erica Laboy MD at [facility] Left: Groin [employer] [id number] 11/28/2024 [id number] Procedures Procedure Name Priority Date/Time Associated Diagnosis [...] HEPATITIS C ANTIBODY Routine 12/03/2020 10:16 AM PROGRAM MANAGEMENT MANAGER Encounter for hepatitis C screening test for low risk patient from Last 3 Months or Most Recently Relevant to Health Maintenance Results * Thyroid Function Wake (02/25/2025 2:10 PM CDT) TSH 2.07 0.27 - 4.20 uIU/mL [facility] Blood 02/25/2025 2:10 PM CDT 02/25/2025 3:14 PM CDT us Ana Macias SLOTTER OPERATOR HELPER LAB BLOOD ORDERABLES Final Re sult RADHA LAZARODA [address] [facility] [address] [place] [address] * PSA screen (02/25/2025 2:10 PM CDT) PSA, Total 1.4 0.0 - 4.0 ng/mL [facility] Blood 02/25/2025 2:10 PM CDT 02/25/2025 3:14 PM CDT us Ana Macias SLOTTER OPERATOR HELPER LAB BLOOD ORDERABLES Final Re sult RADHA RUGGIERO [address] [facility] [address] [place] [address], [place] * (ABNORMAL) CBC with auto differential [...] CDT 02/25/2025 3:14 PM CDT Ana Macias SLOTTER OPERATOR HELPER LAB BLOOD ORDERABLES Final Re sult RADHA RUGGIERO [address] [facility] [address] * Lipid panel (02/25/2025 2:10 PM CDT) Triglyceride 52 0 - 150 mg/dL [facility] Cholesterol 131 0 - 200 mg/dL [facility] HDL 48 >35 mg/dL [facility] LDL-Calculated 73 mg/dL [facility] CHOL/HDL Risk Ratio 3 Ratio [facility] LDL/HDL Risk Ratio 2 Ratio [facility] Blood 02/25/2025 2:10 PM CDT 02/25/2025 3:14 PM CDT Ana Macias SLOTTER OPERATOR HELPER LAB BLOOD ORDERABLES Final Re sult Performing Organization Address [facility]/ZIP Co de Phone Number RADHA RUGGIERO [address] [facility] [address] * (ABNORMAL) Comprehensive metabolic panel (02/25/2025 [...] 02/25/2025 3:14 PM CDT us Ana Macias SLOTTER OPERATOR HELPER LAB BLOOD ORDERABLES Final Re sult RADHA RUGGIERO [address] [address] * Urinalysis reflex to microscopic and culture Urine (02/25/2025 2:10 PM CDT) Color, ur Straw Yellow Clarity, ur Clear Clear [facility] Specific gravity, ur 1.017 1.003 - 1.030 [facility] pH, urine 6.5 [facility] Comment: Interpretive Data U rine pH is affected by diet, medications, systemic acid-base disturbances, and renal tubular function. pH may affect urinary stone formation. For example, urine pH below 6.0 may help reduce the tendency for calcium phosphate stones and pH greater than 6.0 may reduce the tendency for uric acid stone formation. Source: [facility] Current Interpretive Data was last revised on 2017 Protein, ur ql Negative Negative [facility] Glucose, ur ql Negative Negative [facility] Ketones, ur Negative Negative [facility] Bilirubin, ur Negative Negative [facility] Blood, ur Negative Negative [facility] Urobilinogen, ur <2.0 <2.0 mg/dL [facility] Nitrite, ur Negative Negative [facility] Leukocyte esterase, ur Negative Negative [facility] UA reflex comment Reflex conditions for microscopic UA and culture not met. [facility] Urine 02/25/2025 2:10 PM CDT 02/25/2025 6:48 PM CDT us Ana Macias NP LAB MICROBIOLOGY - GENERAL OR DERABLES Final Result [facility] Department [place] [address] * CTA Chest Abdomen Pelvis (03/14/2024 11:06 [...] is 31 mm AP x 34 mm yejto-xy-fgea. This is stable since the prior exam. The maximum diameter of the graft is 32 mm AP x 31 mm inklo-om-kvfy. This is stable since the prior exam. [...] is 31 mm AP x 34 mm puuth-sd-bzle. This is stable since the prior exam. The maximum diameter of the graft is 32 mm AP x 31 mm gyrwd-yb-iudo. This is stable since the prior exam. [...] * Hepatitis C antibody (12/03/2020 10:16 AM PROGRAM MANAGEMENT MANAGER) Hep C Ab Nonreactive Nonreactive [facility]E [facility]ARY[facility] [...] 2019. Blood specimen (specimen) 12/03/2020 10:16 AM PROGRAM MANAGEMENT MANAGER 12/03/2020 12:32 PM PROGRAM MANAGEMENT MANAGER Simeon Lawton NP LAB MICROBIOLOGY - GENERAL OR DERABLES Final Result CHARLEE [address] Department [place] [address] from Last 3 Months or Most Recently Relevant to Health Maintenance Insurance [facility] [employer] ACCESS CHOICE [facility] ACCESS CHOICE [facility] ACCESS CHOICE Advance Directives For more information, please contact: [phone] * Full Code (Latest Code Status on [...] 8:20 AM 06/28/2019 6:01 PM Care Teams Dean Of Education Relationship Specialty Start Date End Date Ana Macias NP [address] [address] PCP - General Nurse Practitioner 02/25/25 Erica Laboy MD Surgeon Vascular Surgery 02/12/23
--- OUTSIDE RECORDS SUMMARY | 2025-05-07 14:13 | XMS_ITS | Clinical Summary ---
Author Organization [facility] Address [address] [place] [address] Care Team Providers Care Watch And Clock Repairer Name Role Phone [facility] Primary C are Provider Source Comments [facility],non-owned Affiliates and Associated Physician Practices is amultiple site organization consisting of ambulatory clinics and hospital sitesin [place], [place], [place] and [place]. This disclosure is being madepursuant to the Care Everywhere program and may not contain all information available regarding this patient. Last updated 18.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 Gender Identity Not on file Sexual Orientation Not on file Last Filed Vital Signs Vital Sign Reading Time Taken Comments Blood Pressure 138/92 11/30/2018 8:37 AM ROOM SERVICE ASSOCIATE Pulse 75 11/30/2018 8:37 AM ROOM SERVICE ASSOCIATE Temperature 36.6 C (97.8 F) 11/30/2018 8:37 AM ROOM SERVICE ASSOCIATE Respiratory Rate 16 11/30/2018 8:37 AM ROOM SERVICE ASSOCIATE Oxygen Saturation 100% 11/30/2018 8:37 AM ROOM SERVICE ASSOCIATE Inhaled Oxygen Concentration - - Weight 98.7 kg (217 lb 11.2 oz) 11/28/2018 9:30 PM ROOM SERVICE ASSOCIATE Height 195.6 cm (6' 5) 11/28/2018 9:30 PM ROOM SERVICE ASSOCIATE Body Mass Index 25.82 11/28/2018 9:30 PM ROOM SERVICE ASSOCIATE Plan of Treatment Health Maintenance Due Date [...] LIPID PROFILE AM Draw 11/28/2018 3:18 PM ROOM SERVICE ASSOCIATE from Last 3 Months or Most Recently Relevant to Health Maintenance Results * LIPID PROFILE (11/28/2018 3:18 PM ROOM SERVICE ASSOCIATE) Pathologist [facility] Cholesterol 122 <200 mg/dL 11/29/2018 10:33 AM [facility] Triglycerides 52 <150 mg/dL 11/29/2018 10:33 AM [facility] HDL Cholesterol 45 >40 mg/dL 9 10:33 AM [facility] LDL Calculated 67 <130 mg/dL 11/29/2018 10:33 AM [facility] VLDL Calculated 10 <=30 mg/dL 9 10:33 AM [facility] Chol HDL Ratio 2.7 <4.5 11/29/2018 10:33 AM [facility] LDL/HDL Ratio 1.5 <5.0 11/29/2018 10:33 AM [facility] Blood BLOOD SPECIMEN / Unknown Venipuncture / Unknown 11/28/2018 3:18 PM ROOM SERVICE ASSOCIATE 11/29/2018 6:17 AM ROOM SERVICE ASSOCIATE Ashley Hines MAGNETIC HEALER-LEAD CLINICAL RESEARCH COORDINATOR LAB - CHEMISTRY ORDERABLE S Final Result [facility] [address] [place] [address] from Last 3 Months or Most Recently Relevant to Health Maintenance Insurance [facility] Address: [facility] [id number] [place] [phone] [facility] Address: [address] [address] [facility] Advance Directives * Full Code (Latest Code Status on File) Date Activated Date Inactivated Comments 11/28/2018 9:45 PM 11/30/2018 2:46 PM Care Teams Watch And Clock Repairer Relationship Specialty Start Date End Date Clinic[facility]p, Ger[facility] [address] [place] [address] PCP - General 11/28/18
[2025-05-07 14:17] VITALS: BP 187/74; PULSE 75; RESP 18; TEMP 36.4; O2SAT 100
--- NOTE | 2025-05-07 14:28 | ED.LOWEXIN ---
HPI - Extremity Injury (Lower) General Chief Complaint: Extremity Injury, Lower <Natali Wellington PA-C - Last Filed: 05/07/25 18:35> Stated Complaint: toe infection <Natali Wellington PA-C - Last Filed: 05/07/25 18:35> Time Seen by Provider: 05/07/25 16:30 <Natali Wellington PA-C - Last Filed: 05/07/25 18:35> Focused HPI: 65-year-old male presents emergency department due to concerns for osteomyelitis to his right great toe. Patient states 3 days ago he dropped a piece of wood on is great toe. The following day he developed a blister to the region which popped yesterday. Today developed redness and pain. He states the area is been oozing yellow drainage. He went to urgent care and had x-rays performed which showed concerns for osteomyelitis. The patient was redirected here. Denies history of diabetes. Denies fevers. GENERAL: Well-appearing, well-nourished, and in no acute distress. HEAD: Normocephalic, atraumatic. CHEST: Clear to auscultation. ?No respiratory distress. EXT: Right great toe with open wound to the proximal phalanx, no active drainage or purulence. There is surrounding erythema and warmth and tenderness over the MTP. DP pulses 2+. Sensation intact. Patient is able to wiggle toes without difficulty HEART: Regular rate and rhythm.? NEURO: ?Alert and oriented x3. Patient screened in triage and initial orders placed.? ?Additional care and disposition to be based upon?diagnostic testing and treatment. <Natali Wellington PA-C - Last Filed: 05/07/25 18:35> History of Present Illness HPI Narrative: Agree with HPI. Patient did have a pedicure performed on 04/21/2025. <Hayden Martinez MD - Last Filed: 05/07/25 18:12> Related Data Home Medications: Home Medications ?Medication ?Instructions ?Recorded ?Confirmed ?Last Taken ?Type No Home Medications 05/07/25 05/07/25 Unknown History <Natali Wellington PA-C - Last Filed: 05/07/25 18:35> Allergies/Adverse Reactions: Allergies Allergy/AdvReac Type Severity Reaction Status Date / Time No Known Allergies Allergy Verified 05/07/25 14:11 <Natali Wellington PA-C - Last Filed: 05/07/25 18:35> Review of Systems Review of Systems: All systems reviewed & are unremarkable except as noted in HPI and below <Hayden Martinez MD - Last Filed: 05/07/25 18:12> Constitutional: Constitutional: Reports no additional constitutional complaints <Hayden Martinez MD - Last Filed: 05/07/25 18:12> Cardiovascular: Cardiovascular: Reports no additional cardiovascular complaints <Hayden Martinez MD - Last Filed: 05/07/25 18:12> Respiratory: Respiratory: Reports no additional respiratory complaints <Hayden Martinez MD - Last Filed: 05/07/25 18:12> Musculoskeletal: Musculoskeletal: Reports no additional musculoskeletal complaints <Hayden Martinez MD - Last Filed: 05/07/25 18:12> Integumentary/Breasts: Skin/Breast: Reports system reviewed and no additional complaints, except as docu <Hayden Martinez MD - Last Filed: 05/07/25 18:12> PMFSH Past Medical History Medical History: Medical History (Updated 05/07/25 @ 18:11 by Hayden Martinez MD) Aortic dissection Essential hypertension <Natali Wellington PA-C - Last Filed: 05/07/25 18:35> Social History Social History: Social History Smoking status: Current every day smoker Tobacco type: cigarettes Alcohol intake: former Substance use: current Substance use type: marijuana Lack of Transportation: No Lack of Food: Never True Current Housing: I Have Housing Concerned About Future Housing: No Difficulty Paying Gas/Electric Bills: No Difficulty Paying for Meds: No Currently Unemployed: No Education: High School Diploma/GED Difficulty w/ Childcare or Family Care: No Spiritual care concerns: No <Natali Wellington PA-C - Last Filed: 05/07/25 18:35> Exam Narrative: GENERAL: Well-appearing, well-nourished, and in no acute distress. HEAD: Normocephalic, atraumatic. ENT: Mucous membranes moist. CHEST: Clear to auscultation. No respiratory distress. HEART: Regular rate and rhythm. Normal peripheral pulses. ABDOMEN: Soft, nontender, nondistended. EXTREMITIES: Normal range of motion. No edema. Purulent drainage from the right great toe near the PIP or skin is sloughing. SKIN: Warm, dry, no rash. NEURO: Alert and oriented x3. PSYCH: Normal mood and affect. <Hayden Martinez MD - Last Filed: 05/07/25 18:12> Course Course Emergency Course: After consulting general surgery and admitting the patient to the hospitalist service patient has had more time to think. He would like to leave and come back to get his treatment. He needs to financially arrange things before he can be hospitalized received prolonged care taken to ensure stability with his home/car/insurance. I have interviewed and examined the patient. I have determined that the patient has the capacity to understand the information relevant to their care. The patient also understands the consequences of the various options after we discussed relevant information. I feel that the patient is able to understand the relevant information and responds appropriately to questions. I have attempted to persuade the patient to stay to receive care. The patient understands by leaving there is a possibility of , disability, or serious injury. Despite the above information the patient has made the decision to leave against medical advice. I have attempted to persuade the patient to follow up with a physician [place]. I have also notified the patient they may return at any time to the ED for further care. <Hayden Martinez MD - Last Filed: 05/07/25 18:12> Vital Signs Vital signs: Vital Signs Temperature 97.6 F 05/07/25 14:17 Pulse Rate 75 05/07/25 14:17 Respiratory Rate 18 05/07/25 14:17 Blood Pressure 187/74 H 05/07/25 14:17 Pulse Oximetry 100 05/07/25 14:17 Oxygen Delivery Room Air 05/07/25 14:17 Temperature 97.6 F 05/07/25 14:17 Pulse Rate 75 05/07/25 14:17 Respiratory Rate 18 05/07/25 14:17 Blood Pressure 187/74 H 05/07/25 14:17 Pulse Oximetry 100 05/07/25 14:17 Oxygen Delivery Room Air 05/07/25 14:17 <Natali Wellington PA-C - Last Filed: 05/07/25 18:35> Vital Signs Temperature 97.6 F 05/07/25 14:17 Pulse Rate 75 05/07/25 14:17 Respiratory Rate 18 05/07/25 14:17 Blood Pressure 187/74 H 05/07/25 14:17 Pulse Oximetry 100 05/07/25 14:17 Oxygen Delivery Room Air 05/07/25 14:17 Temperature 97.6 F 05/07/25 14:17 Pulse Rate 75 05/07/25 14:17 Respiratory Rate 18 05/07/25 14:17 Blood Pressure 187/74 H 05/07/25 14:17 Pulse Oximetry 100 05/07/25 14:17 Oxygen Delivery Room Air 05/07/25 14:17 <Hayden Martinez MD - Last Filed: 05/07/25 18:12> MDM - Extremity Injury (Lower) Lab Data Result diagrams: 05/07/25 14:58 05/07/25 14:58 <Natali Wellington PA-C - Last Filed: 05/07/25 18:35> Labs: Lab Results 05/07/25 Range/Units 14:58 WBC 7.8 (4.5-10.0) K/mm3 RBC 5.03 (4.6-6.20) M/mm3 Hgb 13.1 L (14.0-18.0) g/dL Hct 38.8 L (42.0-52.0) % MCV 77.1 L (80-100) fl MCH 26.0 (26-34) pg MCHC 33.8 (32-36) g/dl RDW 15.5 H (11.5-14.5) % Plt Count 185 (150-375) k/mm3 MPV 11.0 H (7.4-10.4) fl Immature Gran % (Auto) 0.3 (0-0.5) % Neut % (Auto) 63.1 (45.5-73.1) % Lymph % (Auto) 24.2 (18.3-44.2) % Harvey % (Auto) 8.6 H (2.6-8.5) % Eos % (Auto) 3.2 (0-4.4) % Baso % (Auto) 0.6 (0.2-1.2) % Lymph # (Auto) 1.88 (0.9-3.2) K/mm3 Harvey # (Auto) 0.7 H (0.1-0.6) K/mm3 Eos # (Auto) 0.3 (0-0.3) K/mm3 Baso # (Auto) 0.1 (0.0-0.1) K/mm3 Abs Immat Gran (auto) 0.02 (0.00-0.031) K/mm3 Absolute Neuts (auto) 4.9 (1.3-6.7) K/mm3 Absolute Nucleated RBC 0.000 (0.0-0.012) K/mm3 Nucleated RBC % 0.0 (0.0-0.2) % ESR 15 (0-20) mm/hr Sodium 142 (137-145) mmol/L Potassium 3.7 (3.4-5.0) mmol/L Chloride 113 H (98-107) mmol/L Carbon Dioxide 20 L (22-30) mmol/L Anion Gap 9 (4-12) mmol/L BUN 11 (9-20) mg/dL Creatinine 0.98 (0.7-1.3) mg/dL Estim Creat Clear Calc 84 ml/min Estimated GFR > 60 (59 - ) Glucose 117 H (65-110) mg/dL Lactic Acid 1.6 (0.7-2.0) mmol/L Calcium 9.3 (8.4-10.2) mg/dL Total Bilirubin 0.5 (0.2-1.3) mg/dL AST 23 (17-59) U/L ALT 16 (6-50) U/L Alkaline Phosphatase 114 (38-126) U/L C-Reactive Protein 1.6 H (<1.0) mg/dL Total Protein 7.4 (6.3-8.2) g/dL Albumin 4.0 (3.5-5.1) g/dL <Natali Wellington PA-C - Last Filed: 05/07/25 18:35> Lab Results 05/07/25 Range/Units 14:58 WBC 7.8 (4.5-10.0) K/mm3 RBC 5.03 (4.6-6.20) M/mm3 Hgb 13.1 L (14.0-18.0) g/dL Hct 38.8 L (42.0-52.0) % MCV 77.1 L (80-100) fl MCH 26.0 (26-34) pg MCHC 33.8 (32-36) g/dl RDW 15.5 H (11.5-14.5) % Plt Count 185 (150-375) k/mm3 MPV 11.0 H (7.4-10.4) fl Immature Gran % (Auto) 0.3 (0-0.5) % Neut % (Auto) 63.1 (45.5-73.1) % Lymph % (Auto) 24.2 (18.3-44.2) % Harvey % (Auto) 8.6 H (2.6-8.5) % Eos % (Auto) 3.2 (0-4.4) % Baso % (Auto) 0.6 (0.2-1.2) % Lymph # (Auto) 1.88 (0.9-3.2) K/mm3 Harvey # (Auto) 0.7 H (0.1-0.6) K/mm3 Eos # (Auto) 0.3 (0-0.3) K/mm3 Baso # (Auto) 0.1 (0.0-0.1) K/mm3 Abs Immat Gran (auto) 0.02 (0.00-0.031) K/mm3 Absolute Neuts (auto) 4.9 (1.3-6.7) K/mm3 Absolute Nucleated RBC 0.000 (0.0-0.012) K/mm3 Nucleated RBC % 0.0 (0.0-0.2) % ESR 15 (0-20) mm/hr Sodium 142 (137-145) mmol/L Potassium 3.7 (3.4-5.0) mmol/L Chloride 113 H (98-107) mmol/L Carbon Dioxide 20 L (22-30) mmol/L Anion Gap 9 (4-12) mmol/L BUN 11 (9-20) mg/dL Creatinine 0.98 (0.7-1.3) mg/dL Estim Creat Clear Calc 84 ml/min Estimated GFR > 60 (59 - ) Glucose 117 H (65-110) mg/dL Lactic Acid 1.6 (0.7-2.0) mmol/L Calcium 9.3 (8.4-10.2) mg/dL Total Bilirubin 0.5 (0.2-1.3) mg/dL AST 23 (17-59) U/L ALT 16 (6-50) U/L Alkaline Phosphatase 114 (38-126) U/L C-Reactive Protein 1.6 H (<1.0) mg/dL Total Protein 7.4 (6.3-8.2) g/dL Albumin 4.0 (3.5-5.1) g/dL <Hayden Martinez MD - Last Filed: 05/07/25 18:12> Discharge Plan Discharge Clinical Impression: Acute osteomyelitis of toe of right foot <Natali Wellington PA-C - Last Filed: 05/07/25 18:35> Patient Disposition: Left Against Medical Advice <Natali Wellington PA-C - Last Filed: 05/07/25 18:35> Condition: Guarded Prognosis <Natali Wellington PA-C - Last Filed: 05/07/25 18:35> Patient Language: Sierra Leonean <RENA Anne Last Filed: 05/07/25 18:35> Prescriptions: No Action No Home Medications <Natali Wellington PA-C - Last Filed: 05/07/25 18:35> Follow-up/Referrals: UNKNOWN,DOCTOR [Primary Care Provider] - <RENA Anne Last Filed: 05/07/25 18:35>
[2025-05-07 15:08] LABS: Hematocrit 38.8 % (42.0-52.0); Hemoglobin 13.1 g/dL (14.0-18.0); Immature Granulocyte Percent A 0.3 % (0-0.5); Lymphocytes Absolute Auto 1.88 K/mm3 (0.9-3.2); Mean Corpuscular HGB Conc 33.8 g/dl (32-36); Mean Corpuscular Hemoglobin 26.0 pg (26-34); Mean Corpuscular Volume 77.1 fl (80-100); Nucleated Red Blood Cells Absolute Auto 0.000 K/mm3 (0.0-0.012); Nucleated Red Blood Cells Perc 0.0 % (0.0-0.2); Platelet Count Result 185 k/mm3 (150-375); Red Blood Count 5.03 M/mm3 (4.6-6.20); White Blood Count 7.8 K/mm3 (4.5-10.0)
[2025-05-07 15:22] LABS: CRP 1.6 mg/dL (<1.0)
[2025-05-07 15:28] LABS: Alanine Aminotransferase 16 U/L (6-50); Albumin Level 4.0 g/dL (3.5-5.1); Alkaline Phosphatase 114 U/L (38-126); Anion Gap 9 mmol/L (4-12); Aspartate Amino Transferase 23 U/L (17-59); Bilirubin,Total 0.5 mg/dL (0.2-1.3); Blood Urea Nitrogen 11 mg/dL (9-20); Calcium 9.3 mg/dL (8.4-10.2); Carbon Dioxide 20 mmol/L (22-30); Chloride 113 mmol/L (98-107); Estimated CRCL calculation 84 ml/min; Estimated Glomerular Filt Rate > 60; Glucose 117 mg/dL (65-110); Potassium 3.7 mmol/L (3.4-5.0); Sodium 142 mmol/L (137-145); Total Protein 7.4 g/dL (6.3-8.2)
--- OUTSIDE RECORDS SUMMARY | 2025-05-07 17:19 | XMS_ITS | Clinical Summary ---
Author Organization [facility] Address [address] [place] [address] Care Team Providers Care Vocational Director Name Role Phone Erica Laboy MD Unavailable [phone] Ana Macias NP Primary Care Provider [phone] Allergies No known active allergies Medications aspirin [...] 1 tablet (800 mg total) by mouth shore man before breakfast 90 tablet 3 5 12/16/19 [...] Covid: received initial series and booster through [place], getting bivalent booster today Encounter for vaccination [...] Department Care Team Description 02/26/2025 Results Follow-Up [facility] [address] [place] [address] [address] [place] [address] Ana Macias NP Urinalysis reflex to microscopic and culture Urine, CBC with auto differential, Comprehensive metabolic panel, Additional followed-up results: 3 02/25/2025 6:04 PM CDT - 02/25/2025 11:59 PM CDT Hospital Encounter [facility] [address] [place] [address] Essential hypertension; Chronic right-sided low back pain with right-sided sciatica Discharge Disposition: Discharge to home or self care 02/25/2025 2:30 PM CDT Office Visit [facility] [address] [place] [address] [address] [place] [address] Ana Macias NP Essential hypertension (Primary Dx); Dissection of descending thoracic aorta (HCC); Chronic right-sided low back pain with right-sided sciatica; Prostate cancer screening; Encounter for lipid screening for cardiovascular disease; Skin lesion of face 02/09/2025 8:33 AM CDT - 02/09/2025 10:32 AM CDT Emergency [facility] Emergency Department [address] [place], [place] [id number] Discharge Disposition: Left without being seen from [...] on file Legal Sex Male 5:14 PM 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 Gender Identity Not on file Sexual Orientation [...] Completed 01/01/2023 Medical Devices Implanted Type Area Distribution Collection Operator Device Identifier Shelf Expiration Date Model / Serial / Lot [employer] [place] 6mm 50cm 40cm Removable Ring Stretch Thin Wall Graft [id number] - [id number] - [id number] Implanted:Qty : 1 on 02/05/2023 by Erica Laboy MD at [facility] Graft Left: Carotid Wl [employer] [id number] 07/03/2026 [id number] / [id number] / Abyrx Os-201 Hemasorb Os-Spa Spatula Wax 2gm Bone Sterile - Sna - [id number] Implanted:Qty : 1 on 06/17/2019 by Chaparro Dewey MD at [facility] N/A: Neck Abyrx 06/30/2021 OS-201 / NA / [id number] Abyrx Os-201 Hemasorb Os-Spa Spatula Wax 2gm Bone Sterile - Sna - [id number] Implanted:Qty : 1 on 06/17/2019 by Chaparro Dewey MD at [facility] N/A: Neck Abyrx 04/30/2021 OS-201 / NA / [id number] Allosource [id number] 15cm Frozen Graft Bone Fibula Segment - [id number] Implanted:Qty : 1 on 06/17/2019 by Chaparro Dewey MD at [facility] N/A: Neck [employer]osource 08/23/2023 [id number] / / [id number] Screw 4.0x18mm Self Drilling Variable - [id number] Implanted:Qty : 4 on 06/17/2019 by Chaparro Dewey MD at [facility] N/A: Neck [employer] 31-6513 / / Plate 2-Level 46 Mm Cervical - [id number] Implanted:Qty : 1 on 06/17/2019 by Chaparro Dewey MD at [facility] N/A: Neck [employer] [id number] / / [employer] Zenith Tx2 Pro-Form 30-34mm 30mm 20fr 199mm Proximal Taper [id number] - [id number] Implanted:Qty : 1 on 02/06/2023 by Erica Laboy MD at [facility] Work [employer] [id number] / / [id number] Wood Vascular Device Clsr Perclose Prostyle Sut-Mediatd Closure-Repai r Sys 54234-88 - [id number] Implanted:Qty : 1 on 02/06/2023 by Erica Laboy MD at [facility] Right: Groin [employer] [id number] 11/28/2024 127 73-03 / / [id number] Wood Vascular Device Clsr Perclose Prostyle Sut-Mediatd Closure-Repai r Sys 47792-46 - [id number] Implanted:Qty : 1 on 02/06/2023 by Erica Laboy MD at [facility] Right: Groin [employer] [id number] 11/28/2024 127 73-03 / / [id number] Amplatzer Supervisor Continuous Weld Pipe Mill Manuel 9-[id number] Amplatzer 16mm 10mm 100cm Type Ii Delivery System Optimal Latex Free - [id number] Implanted:Qty : 1 on 02/06/2023 by Erica Laboy MD at [facility] Left: Subclavian [employer] [id number] 10/31/2026 9-AVP2-016 / / [id number] Wood Vascular Device Clsr Perclose Prostyle Sut-Mediatd Closure-Repai r Sys 92161-15 - [id number] Implanted:Qty : 1 on 02/06/2023 by Erica Laboy MD at [facility] Left: Groin [employer] [id number] 11/28/2024 [id number] Procedures Procedure Name Priority Date/Time Associated Diagnosis [...] HEPATITIS C ANTIBODY Routine 12/03/2020 10:16 AM 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 Encounter for hepatitis C screening test for low risk patient from Last 3 Months or Most Recently Relevant to Health Maintenance Results * Thyroid Function [place] (02/25/2025 2:10 PM CDT) TSH 2.07 0.27 - 4.20 uIU/mL [facility] Blood 02/25/2025 2:10 PM CDT 02/25/2025 3:14 PM CDT us Ana Macias AUTHORIZATION MANAGER LAB BLOOD ORDERABLES Final Re sult RADHA LAZARODA [address] [facility] [place] [address] [place] [address] * PSA screen (02/25/2025 2:10 PM CDT) PSA, Total 1.4 0.0 - 4.0 ng/mL [facility] Blood 02/25/2025 2:10 PM CDT 02/25/2025 3:14 PM CDT us Ana Macias AUTHORIZATION MANAGER LAB BLOOD ORDERABLES Final Re sult RADHA RUGGIERO [address] [facility] [place] [address] [place] [address], [place] * (ABNORMAL) CBC with auto differential [...] CDT 02/25/2025 3:14 PM CDT Ana Macias AUTHORIZATION MANAGER LAB BLOOD ORDERABLES Final Re sult RADHA RUGGIERO [address] [facility] [address] * Lipid panel (02/25/2025 2:10 PM CDT) Triglyceride 52 0 - 150 mg/dL [facility] Cholesterol 131 0 - 200 mg/dL [facility] HDL 48 >35 mg/dL [facility] LDL-Calculated 73 mg/dL [facility] CHOL/HDL Risk Ratio 3 Ratio [facility] LDL/HDL Risk Ratio 2 Ratio [facility] Blood 02/25/2025 2:10 PM CDT 02/25/2025 3:14 PM CDT Ana Macias AUTHORIZATION MANAGER LAB BLOOD ORDERABLES Final Re sult Performing Organization Address [facility]/ZIP Co de Phone Number RADHA RUGGIERO [address] [facility] [address] * (ABNORMAL) Comprehensive metabolic panel (02/25/2025 [...] 02/25/2025 3:14 PM CDT us Ana Macias AUTHORIZATION MANAGER LAB BLOOD ORDERABLES Final Re sult RADHA RUGGIERO [address] [address] * Urinalysis reflex to microscopic and culture Urine (02/25/2025 2:10 PM CDT) Color, ur Straw Yellow Clarity, ur Clear Clear [facility] Specific gravity, ur 1.017 1.003 - 1.030 [facility] pH, urine 6.5 [facility] Comment: Interpretive Data U rine pH is affected by diet, medications, systemic acid-base disturbances, and renal tubular function. pH may affect urinary stone formation. For example, urine pH below 6.0 may help reduce the tendency for calcium phosphate stones and pH greater than 6.0 may reduce the tendency for uric acid stone formation. Source: [facility] Current Interpretive Data was last revised on 2017 Protein, ur ql Negative Negative [facility] Glucose, ur ql Negative Negative [facility] Ketones, ur Negative Negative [facility] Bilirubin, ur Negative Negative [facility] Blood, ur Negative Negative [facility] Urobilinogen, ur <2.0 <2.0 mg/dL [facility] Nitrite, ur Negative Negative [facility] Leukocyte esterase, ur Negative Negative [facility] UA reflex comment Reflex conditions for microscopic UA and culture not met. [facility] Urine 02/25/2025 2:10 PM CDT 02/25/2025 6:48 PM CDT us Ana Macias NP LAB MICROBIOLOGY - GENERAL OR DERABLES Final Result [facility] Department [place] [address] * CTA Chest Abdomen Pelvis (03/14/2024 11:06 [...] is 31 mm AP x 34 mm rnzxb-mo-kzis. This is stable since the prior exam. The maximum diameter of the graft is 32 mm AP x 31 mm ixtpw-qu-gygz. This is stable since the prior exam. [...] is 31 mm AP x 34 mm nydtq-za-bevp. This is stable since the prior exam. The maximum diameter of the graft is 32 mm AP x 31 mm lnjpn-ou-hzgk. This is stable since the prior exam. [...] * Hepatitis C antibody (12/03/2020 10:16 AM 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) Hep C Ab Nonreactive Nonreactive [facility] ACHARYA [...] 2019. Blood specimen (specimen) 12/03/2020 10:16 AM 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 12/03/2020 12:32 PM 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 Simeon Lawton NP LAB MICROBIOLOGY - GENERAL OR DERABLES Final Result [facility]E [address] Department [place] [address] from Last 3 Months or Most Recently Relevant to Health Maintenance Insurance [facility] CHOICE OOS MULTIPLAN ANTHE[employer] ACCESS CHOICE [facility] HMO/PPO Address: [address] [place] [address] [facility] ACCESS CHOICE [facility] ACCESS CHOICE Advance Directives For more information, please contact: [phone] * Full Code (Latest Code Status on [...] 8:20 AM 06/28/2019 6:01 PM Care Teams Vocational Director Relationship Specialty Start Date End Date Ana Macias NP [address] [address] PCP - General Nurse Practitioner 02/25/25 Erica Laboy MD Surgeon Vascular Surgery 02/12/23
--- OUTSIDE RECORDS SUMMARY | 2025-05-07 17:19 | XMS_ITS | Clinical Summary ---
Author Organization [facility] Address [address] [facility] [place] [address] Care Team Providers Care Professor Of Forestry Name Role Phone [facility] Primary C are Provider Source Comments [facility],non-owned Affiliates and Associated Physician Practices is amultiple site organization consisting of ambulatory clinics and hospital sitesin [place], [place], [place] and [place]. This disclosure is being madepursuant to the Care Everywhere program and may not contain all information available regarding this patient. Last updated 18.[facility] Allergies No known active allergies Medications * [...] on file Legal Sex Male 5:50 AM OFFLINE EDITOR Gender Identity Not on file Sexual Orientation Not on file Last Filed Vital Signs Vital Sign Reading Time Taken Comments Blood Pressure 138/92 11/30/2018 8:37 AM OFFLINE EDITOR Pulse 75 11/30/2018 8:37 AM OFFLINE EDITOR Temperature 36.6 C (97.8 F) 11/30/2018 8:37 AM OFFLINE EDITOR Respiratory Rate 16 11/30/2018 8:37 AM OFFLINE EDITOR Oxygen Saturation 100% 11/30/2018 8:37 AM OFFLINE EDITOR Inhaled Oxygen Concentration - - Weight 98.7 kg (217 lb 11.2 oz) 11/28/2018 9:30 PM OFFLINE EDITOR Height 195.6 cm (6' 5) 11/28/2018 9:30 PM OFFLINE EDITOR Body Mass Index 25.82 11/28/2018 9:30 PM OFFLINE EDITOR Plan of Treatment Health Maintenance Due Date [...] LIPID PROFILE AM Draw 11/28/2018 3:18 PM OFFLINE EDITOR from Last 3 Months or Most Recently Relevant to Health Maintenance Results * LIPID PROFILE (11/28/2018 3:18 PM OFFLINE EDITOR) Pathologist [facility] Cholesterol 122 <200 mg/dL 11/29/2018 10:33 AM [facility] Triglycerides 52 <150 mg/dL 11/29/2018 10:33 AM [facility] HDL Cholesterol 45 >40 mg/dL 9 10:33 AM [facility] LDL Calculated 67 <130 mg/dL 11/29/2018 10:33 AM [facility] VLDL Calculated 10 <=30 mg/dL 9 10:33 AM [facility] Chol HDL Ratio 2.7 <4.5 11/29/2018 10:33 AM [facility] LDL/HDL Ratio 1.5 <5.0 11/29/2018 10:33 AM [facility] Blood BLOOD SPECIMEN / Unknown Venipuncture / Unknown 11/28/2018 3:18 PM OFFLINE EDITOR 11/29/2018 6:17 AM OFFLINE EDITOR Ashley Hines MATERIALS PLANNING ANALYST-CLINICAL THERAPIST LAB - CHEMISTRY ORDERABLE S Final Result [facility] [address] [place] [address] from Last 3 Months or Most Recently Relevant to Health Maintenance Insurance [facility] CIGNA [facility] Advance Directives * Full Code (Latest Code Status on File) Date Activated Date Inactivated Comments 11/28/2018 9:45 PM 11/30/2018 2:46 PM Care Teams Professor Of Forestry Relationship Specialty Start Date End Date [facility] [address] [place] [address] PCP - General 11/28/18
== END 2025-05-07 18:21 | disposition left against medical advice (07) ==
PROVIDERS: Physician Assistant; Emergency Provider Emergency Medicine
DX: M86.171 Other acute osteomyelitis, right ankle and foot (principal); I10 Essential (primary) hypertension; F17.210 Nicotine dependence, cigarettes, uncomplicated
CPT/HCPCS: 36415; 73660; 80053; 83605; 85025; 85652; 86140; 87040; 87070; 87075; 96365; 96368; 96375; 99284